=== PATIENT | female | born 1930 | race Caucasian/White ===

== ENCOUNTER 2017-02-20 17:35 | Inpatient (IN) | payer MEDICARE, BC ==
[~2017-02-20] VITALS: Ht 144.8 cm; Wt 55.3 kg
--- NOTE | 2017-02-20 17:35 | NUR ---
Admit Pt admitted to room 129 via EMS cart from [facility] at this time. Pt hallucinating, reaching into the air grabbing at food. EMS reported "cutting up biscuits and gravy for her in the ambulance." Pt Alert to place - she stated she was in the hospital, and said she was here because she fell, but did not understand that she broke her hip. Just stated "my right side hurts." Pt redirected easily. Family at patient bedside. Pt unable to rate pain, just that it "hurts." Will continue to monitor.
--- OUTSIDE RECORDS SUMMARY | 2017-02-20 17:50 | XMS REPORT | CCD ---
Author Author ADRIANA BROWNIGN Organization Unknown Address [address] [place] [phone] Phone 0 Care Team Providers Care Accountant Cost Name Role Phone Shyam DURAN Attending Physician 0 Vital Signs Unknown. Allergies Unknown. Procedures Unknown. History of Immunizations Unknown. Problems Unknown. Results Unknown. Medications Unknown. Medications Administered Unknown. Encounters Unknown. Social History Smoking Status Code Start Date End Date Unknown if ever smoked [id number] Patient Decision Aids Unknown. Instructions You were admitted to COUNTS [facility]CLUDE 234 BEDS AT THE [facility] on 02/27/2014. You were discharged from COUNTS INCLUDE 234 BEDS AT THE [facility] on 02/27/2014. Should you have any questions prior to discharge, please contact a member of your healthcare team. If you have left the hospital and have any questions, please contact your primary care physician. Chief Complaint and Reason For Visit Chief Complaint Date of Onset DEXA HIP SPINE Function Status Unknown. Plan of Care Unknown. Referral/Transition of Care Unknown.
--- OUTSIDE RECORDS SUMMARY | 2017-02-20 17:50 | XMS REPORT | Continuity of Care Document ---
Demographics Preferred Language Unknown Marital Status Unknown Jehovah'S Witness Affiliation Unknown Race Unknown Ethnic Group Unknown Author Author [facility] Organization [facility] Address Unknown Phone Unavailable Allergies Medications Problems Procedures Results Encounters ACCT No. Visit Date/Time Discharge Status Pt. Type Provider Facility Loc./Unit Complaint [id number] 02/28/2014 14:04:00 [facility] Unknown
[2017-02-20 18:00] VITALS: PULSE 137; RESP 22
[2017-02-20 18:01] VITALS: BP 190/98; PULSE 137; RESP 22; TEMP 98.6; O2SAT 94
[2017-02-20 18:13] VITALS: Ht 144.8 cm; Wt 55.3 kg
[2017-02-20] MEDS ORDERED: ONDANSETRON 4mg/2ml INJECTION IV PRN (18:45)
[2017-02-20] MEDS ORDERED: FURO-153 PO (19:17)
[2017-02-20] MEDS ORDERED: CYAN1TAB8 PO (19:17)
[2017-02-20] MEDS ORDERED: ACET-62 PO (19:17)
[2017-02-20] MEDS ORDERED: BENA10TA3 PO (19:17)
[2017-02-20] MEDS ORDERED: TROL35.4 TOP (19:17)
[2017-02-20] MEDS ORDERED: POTA10TA14 PO (19:17)
[2017-02-20] MEDS ORDERED: AMLO2.5T PO (19:17)
[2017-02-20] MEDS ORDERED: [UNRECOGNIZED DRUG - CODE] TOP (19:17)
[2017-02-20] MEDS ORDERED: DIPH28.33 TOP (19:17)
[2017-02-20] MEDS ORDERED: CARB-47 PO (19:17)
[2017-02-20] MEDS ORDERED: AMAN100T PO (19:17)
[2017-02-20] MEDS ORDERED: LIDO11JE TOP (19:17)
[2017-02-20] MEDS: HYDROMORPHONE 2mg/ml INJECTION IV PRN ×2 (19:24→22:30)
[2017-02-20 20:00] VITALS: PULSE 98; RESP 22
--- NOTE | 2017-02-20 20:29 | HPPDOC ---
HPI - Adult Date DATE: 02/20/17 TIME: 20:09 General Chief Complaint: quotation I broke my hip" History of Present Illness This pleasant 86-year-old female, Mrs. Mcnally [facility] [place] [facility] in [place], [place] and broke her right hip around 10 or 11 AM this morning. She was taken to the [facility] and there received x-rays and lab work and does some pain medicine. The [facility] called me late this afternoon around 4 5:00 and requested that we accept her for transfer because of the broken hip. I agreed to do so. Mrs. Ha got here somewhat after 6:00 I was still finishing some other patients and got down to her room to do the history and physical and the orders as quickly as I could. Past Medical History Past Medical History Past medical history is quite brief I interviewed both the patient and her 2 nieces who were present. Denies any history of heart problems or lung problems. She denies any history of urinary tract problems and denies any history of diabetes. She does admit to history of hypertension which is seems to be well controlled denies any history of brain trauma or any trauma to her body from accidental causes whatsoever. Surgical History Patient's Surgical History: Surgical history is very short she says she has had an appendectomy when she was in high school and is absolutely the only surgery she has ever had. Current Medications Home Meds Reported Medications Cyanocobalamin/FA/Pyridoxine (Homocysteine Formula Tablet) 1 Each Tablet, 1 TAB PO DAILY 02/20/17 Lidocaine Gel (Glydo 2%) 11 Ml Jel.pf.shanon, 1 APPLIC TOP TID Y for PAIN Apply to back PRN, offer TID 02/20/17 Trolamine Salicylate/Aloe Vera (Aspercreme 10% Cream) 35.4 Gm Cream..g., 1 APPLIC TOP PRN 02/20/17 Hydrocortisone Acetate/Aloe V (Hydrocortisone-Aloe 0.5% Cream) 28.4 Gm Cream..g. , 1 APPLIC TOP TID Y for ITCHING Apply to area of inner thigh PRN (May apply instead of or with Benadryl cream) 02/20/17 Diphenhydramine HCl/Zinc Acet (Benadryl Itch Stopping Crm) 28 Applic/28.3 G Cr, 1 APPLIC TOP QID Y for ITCHING, G apply to inner thighs PRN. May apply instead of or with Hydrocortisone cream 02/20/17 Acetaminophen (Acetaminophen) 500 Mg Tablet, 1 TAB PO Q4H, TAB Do not exceed 3,200 mg of acetaminophen in a 24 hours period. 02/20/17 Amantadine HCl (Amantadine) 100 Mg Tablet, 0.5 TAB PO BID, #60 TAB 1 Refill 02/20/17 Amlodipine Besylate (Amlodipine Besylate) 2.5 Mg Tablet, 2.5 MG PO DAILY, TAB 02/20/17 Potassium Chloride (Potassium Chloride) 10 Meq Tablet.er, 30 MEQ PO DAILY, TAB Take 1 tablet, by mouth, daily with breakfast 02/20/17 Carbidopa/Levodopa (Sinemet 25-100 mg Tablet) 1 Each Tablet, 1 TAB PO QID/E, TAB BEST ON AN EMPTY STOMACH. 02/20/17 Benazepril HCl (Benazepril HCl) 10 Mg Tablet, 1 TAB PO DAILY, TAB 02/20/17 Furosemide (Lasix) 40 Mg Tablet, 1 TAB PO DAILY, TAB 02/20/17 Allergies: Coded Allergies: NKDA (Verified Allergy, Unknown, 02/20/17) Family History Family History: Her family history is noncontributory. Social History Smoking Status: Never smoker Does patient use chewing tobac: No Second Hand Exposure: No Substance Use Type: does not use Alcohol Intake: none Marital Status: Sexuality: male partner Housing: [place] Number of Children: 0 Service: No Current Occupational Status: retired Occupational Hazard: No Advance Directives: Yes DPOA for Healthcare Only (Iris Chaney) Review of Systems Constitutional: REPORTS: see HPI, DENIES: chills, dizziness, early awakening, fever, insomnia, weight loss Eyes General: DENIES: burning, itching, pain Lids/Accessories: DENIES: erythema, swelling Vision: DENIES: acuity, change in color, double vision ENMT Ears: DENIES: pain Hearing: DENIES: tinnitus Balance: DENIES: vertigo Sinuses: NOT FOUND: rhinorrhea Nose: NOT FOUND: change in smell Mouth/Throat: DENIES: pain, scratchy throat, sore throat, sores ENMT Teeth: DENIES: chipped/cracked tooth, pain Jaw: DENIES: clicking, limited opening of mouth, popping Cardiovascular DENIES: chest pain, dyspnea on exertion, murmur, orthopnea, paroxysmal nocturnal dysp Rhythm/Rate: DENIES: irregular beat, palpitations, tachycardia Vascular: DENIES: Raynaud's, atrophy, intermittent claudication Pulmonary Respiratory: DENIES: cough, dyspnea, hyperventilation, pleuritic chest pain, sputum, tachypnea GI Upper Abdomen: DENIES: dysphagia, food intolerances, heartburn/indigestion, hematemesis, nausea General: DENIES: burning, dysuria, frequency, urgency Female: menopause Musculoskeletal General: DENIES: cramps, pain Lumbar: DENIES: spasm Integumentary Skin: DENIES: color change, itching, rash Hair: DENIES: alopecia, dandruff Nails: DENIES: paronychia, subungal hematoma Breasts: DENIES: discharge, lumps, symmetry, tenderness Neurological General: DENIES: ataxia, headache, numbness, paralysis/paresis, tremor, weakness Psychiatric Psychiatric: DENIES: anxiety, depression, emotional instability, irritability, nervousness, suicidal ideation/attempt Endocrine DENIES: heat/cold intolerance, polyphagia Hematologic/Lymphatic DENIES: anemia, bleeding gums, easy bruising, frequent nosebleeds Allergic/Immunological DENIES: frequent infections, sneezing All Other Systems All Other Systems: Reviewed (remainder of 10-point ROS Neg.) Physical Exam General General Nourishment: well nourished, well developed General Body Habitus: well groomed Vital Signs Vital Signs Date Time Temp Pulse Resp B/P Pulse Ox O2 Delivery O2 Flow Rate FiO2 02/20/17 19:24 20 02/20/17 18:01 98.6 137 190/98 94 Room Air Height (Feet): 4 Height (Inches): 9.00 Telemetry Rhythm: Sinus Rhythm Eyes Brief: FOUND: EOMI, PERRL ENMT Brief: FOUND: TM clear, TM good light reflex, ear canals clear Neck Brief: FOUND: adenopathy, thyromegaly Respiratory Brief: FOUND: clear all jackson, equal bilaterally, NOT FOUND: rales , wheezes Cardiovascular (brief) Cardiac Brief: FOUND: regular rate, regular rhythm, NOT FOUND: gallop, murmur, pedal edema Capillary Refill: <2 sec Abdomen (brief) Abdominal Brief: FOUND: BS normo active x4, soft, NOT FOUND: distended, hepatosplenomegaly (brief) Comments deferred Comments Female genitourinary exam is deferred at this time Lymphatic (brief) Lymphatic Brief: NOT FOUND: adenopathy, lymphedema Musculoskeletal (brief) Musculoskeletal Brief: NOT FOUND: spasm, tenderness Comments Right hip area is very tender to touch and the right leg is somewhat shortened and slightly rotated Musculoskeletal Back: NOT FOUND: spasm, tenderness Integumentary (brief) Integumentary Brief: FOUND: dry, pink, warm Neurologic (brief) Neurological Brief: FOUND: cranial 2-12 intact, NOT FOUND: motor Neurologic RN Documented GCS Eye Opening: Verbal: Motor: Total: 14 Psychiatric (brief) FOUND: alert, attentive, normal affect, oriented Concerns For Adverse Events Patient is somewhat stoic and doesn't seem to want to admit the severity of her injury or her level of pain but I think the presence of HER-2 nieces will help her to a properly asked for pain medicine and become better prepare mentally for her surgery tomorrow. Assessment & Plan Assessment 1). Intertrochanteric fracture of right femur 2.. Hypertension, well controlled. The current plan is to have patient nothing by mouth after midnight and in the meantime a letter have a full liquid diet. Also we plan to give her Dilaudid along with Zofran for emesis and pain control prior to surgery. Orthopedic surgery has been contacted and I know they will or enter their own orders as they see fit. Code Status Full Code Hospital Course Summary Disclaimer The hospital course summary below is not to be considered part of the above Progress Note. EVELYN HOOVER DO Feb 20, 2017 20:12
[2017-02-20 20:37] LABS: INR 0.98 (0.76-1.04); PROTHROMBIN TIME 10.7 SEC (9.31-12.49)
[2017-02-20 20:41] LABS: ALBUMIN 4.2 G/DL (3.5-5.0); ALBUMIN/GLOBULIN RATIO 1.1 RATIO (1.1-2.2); ALKALINE PHOSPHATASE 98 U/L (38-126); ALT (SGPT) 36 U/L (9-52); ANION GAP 13 MEQ/L (5-15); AST (SGOT) 31 U/L (14-36); BUN/CREATININE RATIO 16 RATIO (6-26); CALCIUM 9.6 MG/DL (8.4-10.2); CHLORIDE 104 MEQ/L (98-107); CO2 - CARBON DIOXIDE 26 MEQ/L (22-30); CREATININE 1.3 MG/DL (0.7-1.2); GLOMERULAR FILTRATION RATE 39; GLUCOSE 125 MG/DL (65-110); SODIUM 143 MEQ/L (134-144)
--- NOTE | 2017-02-20 21:00 | NUR ---
Order/Code status: Pt nurseEleanor states that family requests Pt to be a DNR. Notified Dr. Morgan in person this shift and received verbal order to change Pt code status to DNR. Order noted and implemented. Notified staff nurseEleanor.
--- NOTE | 2017-02-20 21:24 | DI ---
Indication: ITS.REASON: Hip fx PROCEDURE: PELVIS W/1 VIEW RT HIP: Encounter: Initial Comparison: February 20, 2017 Findings: Displaced intertrochanteric right femoral fracture is again seen. There is now fully catheter in place with the tip projecting over the bladder. No new fracture or dislocation. Diffuse bony demineralization. Impression: Unchanged appearance of the intertrochanteric right femoral fracture. .
[2017-02-20 22:19] VITALS: BP 172/95; PULSE 98; RESP 22; TEMP 96.3; O2SAT 96
[2017-02-21] VITALS (30 sets, daily range): BP systolic 129–212; BP diastolic 58–98; PULSE 80–102; RESP 13–22; TEMP 96.4–98.8; O2SAT 92–100
[2017-02-21] MEDS: HYDROMORPHONE 2mg/ml INJECTION IV PRN ×5 (01:30→20:41)
--- NOTE | 2017-02-21 02:53 | NUR ---
Chart Check 24 hour chart check completed
--- NOTE | 2017-02-21 03:57 | NUR ---
STATUS PATIENT IS ONLY ORIENTATED TO PERSON. PATIENT UNABLE TO TELL RN THAT HER PAIN LEVEL . PRN DILAUDID IV WAS GIVEN BY USING H[place] FACES PAIN SCALE. NPO. PATIENT KEPT TO ASKING TO GIVE HER WATER DURING NIGHT. NEEDED TO REPEAT TO TELL HER THE REASONS THAT WHY SHE CAN'T HAVE WATER. ON ROOM AIR .DENIES CHEST PAIN,SOA,OR N/V. PATIENT ATTEMPT TO PULL HAMILTON AND IV LOCK OUT CONSISTENTLY. HAMILTON PATENT/DRAINING.COBAN APPLIED AT RAC IV SITE. SCD WAS USED BOTH LOW EXTREMITIES. CONTINUE TO MONITOR.
[2017-02-21 05:14] LABS: BASOPHILS % (AUTO) 0.1 % (0-2); EOSINOPHILS % (AUTO) 0.1 % (0-4); HGB - HEMOGLOBIN 13.4 GM/DL (12-16); IMMATURE GRANULOCYTE # (AUTO) 0.02 T/MM3 (0.00-0.03); IMMATURE GRANULOCYTE % (AUTO) 0.2 % (0.0-0.5); LYMPHOCYTES % (AUTO) 9.2 % (23-45); MEAN CORPUSCULAR HGB 30.2 UUG (26-34); MEAN CORPUSCULAR HGB CONC(MCHC 32.7 GM/DL (31-37); MEAN CORPUSCULAR VOLUME 92.6 UM3 (80-100); MEAN PLATELET VOLUME 11.4 UM3 (9.4-12.4); MONOCYTES # (AUTO) 1.2 T/MM3 (0-0.8); MONOCYTES % (AUTO) 11.2 % (0-9.0); NEUTROPHILS #(AUTO)-ABSOLUTE 8.8 T/MM3 (1.8-7.7); NEUTROPHILS % (AUTO) 79.2 % (33-66); RED BLOOD COUNT 4.43 M/MM3 (4.00-5.20); WBC - WHITE BLOOD COUNT 11.1 T/MM3 (4.5-11.0)
[2017-02-21 05:22] LABS: ANION GAP 9 MEQ/L (5-15); BUN/CREATININE RATIO 17 RATIO (6-26); CALCIUM 9.3 MG/DL (8.4-10.2); CHLORIDE 104 MEQ/L (98-107); CO2 - CARBON DIOXIDE 30 MEQ/L (22-30); CREATININE 1.2 MG/DL (0.7-1.2); GLOMERULAR FILTRATION RATE 42; GLUCOSE 124 MG/DL (65-110); POTASSIUM 3.8 MEQ/L (3.6-5); SODIUM 143 MEQ/L (134-144)
--- NOTE | 2017-02-21 06:32 | CONSPD ---
Consultation Info Date DATE: 02/21/17 TIME: 06:26 Attending Physician Ruma Lopez MD Reason for Consultation: Right hip fx. Impression/Recommendation Impression/Recommendation: (1) Hypertension (2) Closed intertrochanteric fracture of right hip Ortho HPI HPI Elements Location: FOUND hip (right) Injury: Yes (Fell at the [place] in [place].) Pain: FOUND sharp Onset: Sudden (Fell 02/20/17.) Radiating: No Severity: FOUND moderate, FOUND severe Duration: FOUND other (Fell late morning 02/20/17) Previous Surgery: No Previous Injury: No Aggrevated by: FOUND all activity Treatments Tried: FOUND pain medications, FOUND rest X-ray Findings: FOUND intertrochanteric fx (of the right hip.) Recommendation: FOUND other (Internal fixation with cephalomedullary device.) Review of Systems Constitutional: REPORTS: see HPI, DENIES: chills, dizziness, early awakening, fever, insomnia, weight loss Cardiovascular DENIES: chest pain, dyspnea on exertion, murmur, orthopnea, paroxysmal nocturnal dysp Rhythm/Rate: DENIES: irregular beat, palpitations, tachycardia Vascular: DENIES: Raynaud's, atrophy, intermittent claudication Pulmonary Respiratory: DENIES: cough, dyspnea, hyperventilation, pleuritic chest pain, sputum, tachypnea GI Upper Abdomen: DENIES: dysphagia, food intolerances, heartburn/indigestion, hematemesis, nausea General: DENIES: burning, dysuria, frequency, urgency Musculoskeletal General: DENIES: cramps, pain Lumbar: DENIES: spasm Integumentary Skin: DENIES: color change, itching, rash Hair: DENIES: alopecia, dandruff Nails: DENIES: paronychia, subungal hematoma Breasts: DENIES: discharge, lumps, symmetry, tenderness Neurological General: DENIES: ataxia, headache, numbness, paralysis/paresis, tremor, weakness Psychiatric Psychiatric: DENIES: anxiety, depression, emotional instability, irritability, nervousness, suicidal ideation/attempt Endocrine DENIES: heat/cold intolerance, polyphagia Hematologic/Lymphatic DENIES: anemia, bleeding gums, easy bruising, frequent nosebleeds Allergic/Immunological DENIES: frequent infections, sneezing All Other Systems Reviewed (remainder of 10-point ROS Neg.) Past Medical History Adult Past Medical History Patient History: (1) Hypertension (2) Parkinson disease Surgical History Patient's Surgical History: Appendectomy Current Medications Acetaminophen (Acetaminophen) 500 Mg Tablet, 1 TAB PO Q4H, (Reported) Do not exceed 3,200 mg of acetaminophen in a 24 hours period. Last Taken: Unknown Dose on Unknown Date & Time Amantadine HCl (Amantadine) 100 Mg Tablet, 0.5 TAB PO BID, (Reported) Last Taken: Unknown Dose on 02/20/17 08 Amlodipine Besylate (Amlodipine Besylate) 2.5 Mg Tablet, 2.5 MG PO DAILY, (Reported) Last Taken: Unknown Dose on 02/20/17 0800 Benazepril HCl (Benazepril HCl) 10 Mg Tablet, 1 TAB PO DAILY, (Reported) Last Taken: Unknown Dose on 02/20/17 0800 Carbidopa/Levodopa (Sinemet 25-100 mg Tablet) 1 Each Tablet, 1 TAB PO QID/E, (Reported) BEST ON AN EMPTY STOMACH. Last Taken: Unknown Dose on 02/20/17 1000 Cyanocobalamin/FA/Pyridoxine ( Homocysteine Formula Tablet) 1 Each Tablet, 1 TAB PO DAILY, (Reported) Last Taken: Unknown Dose on Unknown Date & Time Diphenhydramine HCl/Zinc Acet (Benadryl Itch Stopping Crm) 28 Applic/28.3 G Cr, 1 APPLIC TOP QID PRN for ITCHING, (Reported) apply to inner thighs PRN. May apply instead of or with Hydrocortisone cream Last Taken: Unknown Dose on Unknown Date & Time Furosemide (Lasix) 40 Mg Tablet, 1 TAB PO DAILY, (Reported) Last Taken: Unknown Dose on 02/20/17 0800 Hydrocortisone Acetate/Aloe V ( Hydrocortisone-Aloe 0.5% Cream) 28.4 Gm Cream..g., 1 APPLIC TOP TID PRN for ITCHING, (Reported) Apply to area of inner thigh PRN (May apply instead of or with Benadryl cream ) Last Taken: Unknown Dose on Unknown Date & Time Lidocaine Gel (Glydo 2%) 11 Ml Jel.pf.shanon, 1 APPLIC TOP TID PRN for PAIN, (Reported) Apply to back PRN, offer TID Last Taken: Unknown Dose on Unknown Date & Time Potassium Chloride ( Potassium Chloride) 10 Meq Tablet.er, 30 MEQ PO DAILY, (Reported) Take 1 tablet, by mouth, daily with breakfast Last Taken: Unknown Dose on 02/20/17 0800 Trolamine Salicylate/Aloe Vera ( Aspercreme 10% Cream) 35.4 Gm Cream..g., 1 APPLIC TOP PRN, (Reported) Last Taken: Unknown Dose on Unknown Date & Time Allergies Allergies: Coded Allergies: NKDA (Verified Allergy, Unknown, 02/20/17) Family History Family History: Her family history is noncontributory. Vaccines No Social History Smoking Status: Never smoker Does patient use chewing tobac: No Second Hand Exposure: No Substance Use Type: does not use Alcohol Intake: none Marital Status: Sexuality: male partner Housing: [facility] Number of Children: 0 Service: No Current Occupational Status: retired Occupational Hazard: No Advance Directives: Yes DPOA for Healthcare Only (Iris Chaney) Physical Exam General General: well developed, no acute distress Respiratory FOUND non-labored Cardiovascular FOUND pedal pulses intact Capillary Refill: <2 sec Musculoskeletal Musculoskeletal : Side: Right Hip: FOUND painful PROM, FOUND tender over trochanter, FOUND unequal leg length Musculoskeletal Brief: FOUND: deformity, loss of motion Integumentary FOUND dry, FOUND pink, FOUND warm Neurologic FOUND intact to light touch, FOUND no deficits Psychiatric FOUND alert, FOUND normal affect Laboratory Laboratory Tests Test 02/20/17 20:08 02/21/17 04:06 Prothromb Time International Ratio 0.98 Turbidity < 20 < 20 Sodium Level 143MEQ/L 143MEQ/L Potassium Level 4.0MEQ/L 3.8MEQ/L Chloride Level 104MEQ/L 104MEQ/L Carbon Dioxide Level 26MEQ/L 30MEQ/L Anion Gap 13MEQ/L 9MEQ/L Blood Urea Nitrogen 21.0MG/DL 20.0MG/DL Creatinine 1.3MG/DL 1.2MG/DL Glomerular Filtration Rate Calc 39 42 BUN/Creatinine Ratio 16RATIO 17RATIO Glucose Level 125MG/DL 124MG/DL Calculated Osmolality 279MOSM/KG 279MOSM/KG Calcium Level 9.6MG/DL 9.3MG/DL Total Bilirubin 1.10MG/DL Icterus Index < 2 < 2 Aspartate Amino Transf (AST/SGOT) 31U/L Alanine Aminotransferase (ALT/SGPT) 36U/L Alkaline Phosphatase 98U/L Total Protein 8.0G/DL Albumin 4.2G/DL Globulin 3.8G/DL Albumin/Globulin Ratio 1.1RATIO Chemistry Specimen Hemolysis < 15 < 15 White Blood Count 11.1T/MM3 Red Blood Count 4.43M/MM3 Hemoglobin 13.4GM/DL Hematocrit 41.0% Mean Corpuscular Volume 92.6UM3 Mean Corpuscular Hemoglobin 30.2UUG Mean Corpuscular Hemoglobin Concent 32.7GM/DL RDW Standard Deviation 50.2FL Platelet Count 195T/MM3 Mean Platelet Volume 11.4UM3 Immature Granulocyte % (Auto) 0.2% Neutrophils (%) (Auto) 79.2% Lymphocytes (%) (Auto) 9.2% Monocytes (%) (Auto) 11.2% Eosinophils (%) (Auto) 0.1% Basophils (%) (Auto) 0.1% Absolute Immature Granulocyte (auto 0.02T/MM3 Absolute Neutrophils (auto) 8.8T/MM3 Absolute Lymphocytes (auto) 1.0T/MM3 Absolute Monocytes (auto) 1.2T/MM3 Absolute Eosinophils (auto) 0.0T/MM3 Absolute Basophils (auto) 0.0T/MM3 Radiology Radiology Closed, displaced intertrochanteric fx of the right hip. JÚNIOR AMBROSE Feb 21, 2017 06:30
--- NOTE | 2017-02-21 08:51 | NUR ---
CM CM IN TO VISIT WITH PT. SHE IS UNABLE TO PARTICIPATE IN DC PLANNING. HER DPOA, BAR, AND ANOTHER FEMALE FAMILY MEMBER ARE PRESENT. BAR REPORTS THAT PT RESIDES IN HEALTHCARE AT [facility]. SHE PLANS TO PT TO RETURN THERE FOR SNF. SHE IS GIVEN [facility] LETTER AND CM CONTACT INFORMATION. LACE SCORE IS 7. NO FURTHER INTERVENTION REQUIRED. Addendum: 02/21/17 at 0852 by EFREN JOHNSON RN Amended: Links added.
[2017-02-21] MEDS ORDERED: ACETAMINOPHEN 325 MG TABLET PO PRN (09:30)
[2017-02-21] MEDS ORDERED: ALBUTEROL INH.SOLN. 2.5 MG/0.5 ML (0.5%) Neb. AEROSOL PRN (09:30)
[2017-02-21] MEDS ORDERED: MILK OF MAGNESIA 30 ML SUSP PO PRN (09:30)
[2017-02-21] MEDS ORDERED: HYDROCORTISONE 1% CREAM 28 GM TOP PRN (09:30)
[2017-02-21] MEDS ORDERED: ACETAMINOPHEN 650 MG SUPPOSITORY RECTALLY PRN (09:30)
[2017-02-21] MEDS ORDERED: BISACODYL 10 MG SUPPOSITORY RECTALLY PRN (09:30)
--- NOTE | 2017-02-21 09:42 | PNPDOC ---
DMITRIY CRISTOBAL JOB TRAINING SUPERVISOR 02/21/17 0924: Subjective Date DATE: 02/21/17 TIME: 09:20 Subjective Eugenie was resting in bed, in no acute distress. She's been A&O to self. She denies any pain. She is NPO for surgery later this afternoon. Two nieces, including her DPOA Rosie, were at bedside. We discussed common medical complications of the injury and surgery, including delirium, constipation, and anemia. I reviewed steps they can take to help minimize delirium. They report that she's already been restless, and pulling at wires and cords, and agree to medication if needed to protect her safety. Objective Vital Signs Vital signs Vital Signs Date Time Temp Pulse Resp B/P Pulse Ox O2 Delivery O2 Flow Rate FiO2 02/21/17 08:54 18 02/21/17 07:24 97.0 89 156/78 92 Room Air Telemetry Rhythm: Sinus Rhythm Height (Feet): 4 Height (Inches): 9.00 Weight (Kilograms): 52.500 General General Appearance: Alert, Orientated x 1, Well Nourished, Well Developed, No Acute Distress Eyes (Brief) Eyes: FOUND: PERRL, NOT FOUND: scleral icterus ENMT (Brief) ENMT: NOT FOUND: mucosa moist (dry MM) Respiratory (Brief) Respiratory: FOUND: clear all jackson, equal bilaterally Cardiovascular (Brief) Cardiac: FOUND: regular rate, regular rhythm Abdomen (Brief) Abdominal: FOUND: BS normo active x4, soft, NOT FOUND: distended, tender (Brief) Comments Mir to DD Extremities (Brief) Extremity : Side: Bilateral Extremity: leg Extremity Finding: NOT FOUND: edema Musculoskeletal (Brief) Musculoskeletal: FOUND: deformity (right leg is shortened), NOT FOUND: tenderness (calves soft) Integumentary (Brief) Integumentary: FOUND: dry, warm Comments bruising to right hand right hip has been initialed by surgeon Psychiatric (Brief) Psychiatric: FOUND: alert, attentive, normal affect, oriented (x1) Laboratory Laboratory Laboratory Tests 02/20/17 20:08 02/21/17 04:06 Laboratory Tests 02/21/17 04:06 Assessment & Plan Problems: (1) Closed intertrochanteric fracture of right hip Status: Acute (2) Leukocytosis Status: Acute (3) Parkinson disease Status: Chronic Assessment & Plan: Uses a walker at baseline (4) Hypertension Status: Chronic Assessment 86 y/o woman with Right hip IT fx; Parkinson's with cognitive impairment; high risk for delirium Plan/Intensity of Service Right hip IT fx - sx this afternoon per ortho. No EKG noted in chart, will obtain one now. Otherwise medically cleared. Cr and GFR both improved slightly. Hgb stable. Will need to consult PT/OT postop. DVT ppx per ortho. Leukocytosis - suspect stress response. Reassess in am. HTN - resume amlodipine tomorrow am. Continue to hold Lasix, K, and benazepril until we can ensure postop BP, renal, and fluid status stabilization. Parkinson's with cognitive impairment; high risk for delirium - monitor closely. Haldol not appropriate given underlying Parkinson's. Start IVF - NS at 75 mL/hr - d/t NPO status. Advance diet as able, but will also obtain speech eval for dysphagia. Repeat chemistries in am because of NPO status and IVF use. High risk medication in use - IV Dilaudid. DVT Prophylaxis: SCD'S Code Status Do Not Resuscitate Hospital Course Summary Disclaimer The hospital course summary below is not to be considered part of the above Progress Note. Hospital Course Summary ADMIT 02/20/17 1). Intertrochanteric fracture of right femur 2. Hypertension, well controlled. The current plan is to have patient nothing by mouth after midnight and in the meantime a letter have a full liquid diet. Also we plan to give her Dilaudid along with Zofran for emesis and pain control prior to surgery. Orthopedic surgery has been contacted. OP DAY 02/21/17 Cr and GFR both improved slightly. Hgb stable. Leukocytosis - suspect stress response. Reassess in am. HTN - resume amlodipine tomorrow am. Continue to hold Lasix, K, and benazepril until we can ensure postop BP, renal, and fluid status stabilization. Parkinson's with cognitive impairment; high risk for delirium - monitor closely. Start IVF - NS at 75 mL/hr - d/t NPO status. Advance diet as able, but will also obtain speech eval for dysphagia. EVELYN MORGAN DO 02/21/172022: Assessment & Plan Plan/Intensity of Service 02/21/2017 Morgan note: I saw Mrs. Eugenie Ha after her surgery. It was approximately 8:15 when I saw her and she still a little groggy from surgery. She did not complain of shortness of breath nor did she complain of any chest pain. When asked about her hip pain she said she didn't did not have any. Her abdomen she says it does not hurt her and he denied any current thirst or hunger. She is not well oriented but I'm sure that is due to the medications used during and after her surgery. Heart demonstrates a regular rate and rhythm without murmur; lungs are clear to auscultation bilaterally; abdomen is soft nontender ID or good bowel sounds; lower extremities show no cyanosis and no edema; patient is not well oriented but that is to be expected; her diagnoses remain, 1. Intertrochanteric fracture of the right femur, surgically repaired today; 2. Leukocytosis, which we think is a stress reaction, 3 parkinsonism which is chronic, 4. Hypertension which is a little bit of a problem right now that we have given her as I ordered clonidine 0.1 mg and her pressure has come down systolically to about 180 or 185. Today is her operative day we plan to resume more medications tomorrow including her blood pressure medicine. The nurses tell me she'll call the night stiff she needs to for the supplementation of the clonidine should this lose pressure go higher. I have read the wrist note is repaired by Ms. Cristobal and no fully agree with her findings and her assessments and plan. DMITRIY CRISTOBAL APRN Feb 21, 2017 09:24 EVELYN MORGAN DO Feb 21, 2017 20:23
[2017-02-21] MEDS: NORMAL SALINE 1,000 ML IV SCH (10:01)
--- NOTE | 2017-02-21 10:35 | NUR ---
SPEECH THERAPY: ORDER RECEIVED AND CHART REVIEWED. THIS CUSHION INSTALLER TALKED WITH PT'S RN. PT IS CURRENTLY NPO AWAITING SURGERY SCHEDULED FOR LATER THIS AFTERNOON (02/21). ST WILL CONTINUE TO FOLLOW AND WILL COMPLETE EVAL WHEN APPROPRIATE.
[2017-02-21] MEDS: CARBIDOPA/LEVODOPA 25 MG/100 MG TABLET PO SCH ×3 (10:52→20:36)
[2017-02-21] MEDS: AMANTADINE PO SCH ×2 (12:45→20:36)
--- NOTE | 2017-02-21 12:48 | ANESPREOP ---
Anesthesia Record Date and Time DATE: 02/21/17 TIME: 12:46 Proposed Surgical Procedure ORIF right hip fx NPO since: mn Allergies: Coded Allergies: NKDA (Verified Allergy, Unknown, 02/20/17) Ht/Wt/BMI Height: 4 ' 9.00 " Weight: 51.900 kg BMI: 25.1 kg/m2 Vital Signs Date Time Temp Pulse Resp B/P Pulse Ox O2 Delivery O2 Flow Rate FiO2 02/21/17 11:23 97.3 93 16 182/83 98 Room Air Medications Inpatient Medications Current Medications Medications (Trade) Dose Ordered Sig/Renee Start Time Stop Time Status Last Admin Dose Admin Ondansetron HCl (Zofran) GIVE 4 TO 8 MG iv EVER... Q4H PRN 02/20/17 18:45 02/22/17 10:00 Hydromorphone HCl (Dilaudid) 0.5 mg Q1-2H PRN 02/20/17 18:45 02/22/17 11:00 02/21/17 08:54 0.5 MG Multi-Ingredient Antiseptic 1 each 1 each PREOP PRN 02/21/17 13:00 Sodium Chloride (Normal Saline IV) 1,000 ml @ 75 mls/hr [id number] 02/21/17 09:30 02/21/17 10:01 75 MLS/HR Amlodipine Besylate (Norvasc) 2.5 mg DAILY 02/22/17 09:00 Carbidopa/Levodopa (Sinemet 25/100) 1 tab QID/E 02/21/17 11:00 Amantadine HCl (Symmetrel) 50 mg BID 02/21/17 12:45 Folic Acid/ Cyanocobalamin/ pyridoxin (Folic Acid+B6+B12) 1 tab DAILY 02/22/17 09:00 Non-Formulary Medication 1 applic TID PRN 02/21/17 09:30 UNV Senna/Docusate Sodium (Senna Plus) 1 tab BID 02/21/17 21:00 Magnesium Hydroxide (Mom) 30 ml DAILY PRN 02/21/17 09:30 Acetaminophen (Tylenol Regular Strength) 1-2 tabs Q4HR PRN 02/21/17 09:30 Acetaminophen (Tylenol Suppository) 650 mg Q6H PRN 02/21/17 09:30 Albuterol (Proventil) 2.5 mg Q2HR PRN 02/21/17 09:30 Bisacodyl (Dulcolax) 10 mg BID PRN 02/21/17 09:30 Acetaminophen (Acetaminophen) 500 Mg Tablet, 1 TAB PO Q4H, (Reported) Do not exceed 3,200 mg of acetaminophen in a 24 hours period. Last Taken: on Unknown Date & Time Amantadine HCl (Amantadine) 100 Mg Tablet, 0.5 TAB PO BID, (Reported) Last Taken: on 02/20/17 08 Amlodipine Besylate (Amlodipine Besylate) 2.5 Mg Tablet, 2.5 MG PO DAILY, (Reported) Last Taken: on 02/20/17 0800 Benazepril HCl (Benazepril HCl) 10 Mg Tablet, 1 TAB PO DAILY, (Reported) Last Taken: on 02/20/17 0800 Carbidopa/Levodopa (Sinemet 25-100 mg Tablet) 1 Each Tablet, 1 TAB PO QID/E, (Reported) BEST ON AN EMPTY STOMACH. Last Taken: on 02/20/17 1000 Cyanocobalamin/FA/Pyridoxine (Homocysteine Formula Tablet) 1 Each Tablet, 1 TAB PO DAILY, (Reported) Last Taken: on Unknown Date & Time Diphenhydramine HCl/Zinc Acet (Benadryl Itch Stopping Crm) 28 Applic/28.3 G Cr, 1 APPLIC TOP QID PRN for ITCHING, ( Reported) apply to inner thighs PRN. May apply instead of or with Hydrocortisone cream Last Taken: on Unknown Date & Time Furosemide (Lasix) 40 Mg Tablet, 1 TAB PO DAILY, (Reported) Last Taken: on 02/20/17 0800 Hydrocortisone Acetate/Aloe V (Hydrocortisone- Aloe 0.5% Cream) 28.4 Gm Cream..g., 1 APPLIC TOP TID PRN for ITCHING, (Reported) Apply to area of inner thigh PRN (May apply instead of or with Benadryl cream ) Last Taken: on Unknown Date & Time Lidocaine Gel (Glydo 2%) 11 Ml Jel.pf.shanon, 1 APPLIC TOP TID PRN for PAIN, (Reported) Apply to back PRN, offer TID Last Taken: on Unknown Date & Time Potassium Chloride (Potassium Chloride) 10 Meq Tablet.er, 30 MEQ PO DAILY, (Reported) Take 1 tablet, by mouth, daily with breakfast Last Taken: on 02/20/17 0800 Trolamine Salicylate/Aloe Vera (Aspercreme 10% Cream) 35.4 Gm Cream..g., 1 APPLIC TOP PRN, (Reported) Last Taken: on Unknown Date & Time Currently on Beta Jace: No Medical/Surgical History Anesthesia PMH: Reports: *Hypertension (on meds) Smoking Status: Never smoker Use Chewing Tobacco?: No Second Hand Exposure: No Substance Use Type: does not use Alcohol Intake: none Past Surgical History Orthopedic Surgeries: No Abdominal Surgeries: Yes - Appendix Genitourinary Surgeries: Yes Cardiac Surgeries: No Endocrine Surgeries: No Reproductive Surgeries: No Neurological Surgeries: No Ear Surgeries: No Nose Surgeries: No Throat Surgeries: Yes Other Surgeries: Anesthesia Adverse Reactions: FOUND none Family Hx of Anesthesia Advers: none Hx of Motion Sickness: No Pertinent Findings Laboratory Tests 02/21/17 04:06 Test 02/20/17 20:08 Prothromb Time International Ratio 0.98 (0.76-1.04) Physical Exam Respiratory: Bilat breath sounds equal, Lungs clear Cardiovascular: FOUND Regular rate, rhythm Airway Assessment Mallampati Score: I TMD: 3 Fingerbreadths Neck Extension: Fair Overall Assessment: No Airway Concerns ASA: 2, E Plan Anesthesia Plan: LMA, GETA Discussion Discussed risks/options/alternatives of anesthesia and questions answered. Patient consents. Nursing pain assessment noted. Present: Family Member Attestation Statement Prior to the delivery of any anesthetic medication, I examined the patient, developed the plan, obtained the patient's consent and discussed the risk and benefits of the procedure with the patient/guardian. MULUGETA WARREN CRNA Feb 21, 2017 12:48
[2017-02-21] MEDS ORDERED: CEFAZOLIN 2 GM VIAL IV ONE (13:00)
[2017-02-21] MEDS ORDERED: NOZIN NASAL SWAB NS PRN (13:00)
--- NOTE | 2017-02-21 14:33 | NUR ---
To OR Pt transferred at this time via bed to OR at this time. VS stable on RA. Family present at time of transfer.
[2017-02-21] MEDS ORDERED: FENTANYL 100mcg/2ml INJECTION ONE (15:40)
[2017-02-21] MEDS ORDERED: KETAMINE 500mg/10ml INJECTION ONE (15:41)
[2017-02-21] MEDS ORDERED: PROPOFOL 500mg 50 ML IV ONE (15:41)
[2017-02-21] MEDS ORDERED: PROPOFOL 200mg 20 ML IV ONE (15:42)
[2017-02-21] MEDS ORDERED: ALBUTEROL INH.SOLN. 2.5mg/3ml (0.083%) Neb. AEROSOL PRN (15:45)
[2017-02-21] MEDS ORDERED: BUPIVACAINE 0.25%/EPI 1:200,000 30ml SDV ONE (15:45)
[2017-02-21] MEDS ORDERED: LIDOCAINE 1% (10mg/ml) 30ml SDV ONE (15:45)
[2017-02-21] MEDS ORDERED: SALINE FLUSH 10ml SYRINGE ONE (16:22)
[2017-02-21] MEDS ORDERED: PHENYLEPHRINE 10mg/ml INJECTION ONE (16:22)
--- NOTE | 2017-02-21 16:50 | PDOPERATE ---
CM Nail Short Procedure Fixation of Intertrochanteric femoral fracture. Date of Operation 02/21/17 Preoperative Diagnosis Right three-part intertrochanteric hip fracture. Postoperative Diagnosis Right three-part intertrochanteric hip fracture. Operation Cephalomedullary fixation of right intertrochanteric hip fracture. Surgeon Fouzia Lopez MD [employer] Lieutenant DUNG Fuller Complications None. Anesthesia TIVA Estimated Blood Loss See Anesthesia Record. Fluids Please See Anesthesia Record. Description of Procedure The patient and the operative extremity were identified and marked in the preoperative holding area. The patient was brought back to the operating suite and placed supine on the fracture table. The patient was placed under general anesthesia. Both legs were placed in well-padded traction boots. The right leg was placed into traction, internal rotation and adduction. The left leg was just placed into extension without traction. Fluoroscopic images confirmed a good reduction. The right lower extremity was then prepped and draped in my normal sterile fashion. Timeout was performed. A 3 cm incision was made proximal to the greater trochanter. The proximal femur was opened over a guidepin and a long guide adrianna was placed down the femur. I reamed to a 12.5 and placed an 11 mm short Gamma nail over the guidepin. A lag screw was placed into a center-center location in the femoral head using the aiming arm over guidepin. Traction was let down and the compression device was used to provide compression at the fracture site. The screw was then locked into place. A locking screw was placed through the nail distally using the aiming arm. All wounds were thoroughly irrigated and then closed with 2-0 Vicryl , Dermabond, and then dressed with tegaderms. The drapes were removed. The patient was allowed to awaken from general anesthesia and taken out of the traction and taken back to the recovery room under care of Anesthesia. The patient tolerated the procedure. There were no complications. CONOR LOPEZ MD Feb 21, 2017 16:50
[2017-02-21] MEDS ORDERED: HYDROCODONE/APAP 5 mg/325 mg TABLET PO PRN (17:00)
--- NOTE | 2017-02-21 17:02 | PDPROCED ---
Immediate Operative Note DATE: 02/21/17 TIME: 17:01 Preop Diagnosis: Right hip intertrochanteric hip fracture Postop Diagnosis: Right hip intertrochanteric hip fracture Surgical Procedures: R ORIF with Cephalomedullary Device Surgeon: John Supervisor Product Inspection: DUNG Chen Anesthesia: TIVA, General Complications: none Estimated Blood Loss see anesthesia note SOHAN WEINBERG Feb 21, 2017 17:02
--- NOTE | 2017-02-21 17:32 | NUR ---
Anesthesia Hardy Allred CRNA notified of pts continued hypertension. No new orders received at this time.
--- NOTE | 2017-02-21 17:34 | ANESPO ---
Post-Op Note Date 02/21/17 Time: 17:34 Status Pt Participated in Evaluation: Pt participated in person Vital Signs Date Time Temp Pulse Resp B/P Pulse Ox O2 Delivery O2 Flow Rate FiO2 02/21/17 17:30 81 16 181/86 97 Room Air 02/21/17 17:20 97.1 02/21/17 17:15 2.00 Respiratory Function: Airway patent, Regular respirations Cardiovascular Function: Regular pulse Telemetry Pattern: SR Pain Level Intensity: 0 Hydration: IV infusing Complications during Recovery None apparent Follow-Up Instructions Instructions Per Surgeon NHAN MEYER CRNA Feb 21, 2017 17:34
--- NOTE | 2017-02-21 17:39 | NUR ---
Back to room Pt transferred back to room at this time by Kathya Abreu RN via bed. Pt on RA. Pt denies nausea and pain at this time. Side rails up X2, call light w/in reach, bed alarm on.
[2017-02-21] MEDS ORDERED: CLONIDINE 0.1 MG TABLET PO ONE (18:00)
[2017-02-21] MEDS: SENNA + DOCUSATE TAB PO SCH (20:36)
[2017-02-22] VITALS (7 sets, daily range): BP systolic 128–187; BP diastolic 63–81; PULSE 77–95; RESP 14–18; TEMP 97.4–99.1; O2SAT 94–98
[2017-02-22] MEDS: CEFAZOLIN 1 G in NORMAL SALINE 100 ML IV SCH ×2 (00:55→10:02)
--- NOTE | 2017-02-22 01:22 | NUR ---
Chart Check 24 hour chart check completed
[2017-02-22] MEDS: NORMAL SALINE 1,000 ML IV SCH (03:32)
--- NOTE | 2017-02-22 05:05 | NUR ---
SHIFT SUMMARY PATIENT IS ALERT AND ORIENTED TO SELF ONLY. PATIENT HAS BEEN HYPERTENSIVE THIS SHIFT, OTHERWISE VITALS ARE STABLE ON ROOM AIR. PATIENT WAS UNCOOPERATIVE AND COMBATIVE EARLY IN SHIFT. AFTER PATIENT WAS GIVEN PRN PAIN MEDICATION PATIENT REPORTED INCREASED COMFORT AND RESTED THROUGH THE NIGHT. WILL CONTINUE TO MONITOR.
[2017-02-22 05:48] LABS: ANION GAP 10 MEQ/L (5-15); BUN/CREATININE RATIO 17 RATIO (6-26); CALCIUM 8.4 MG/DL (8.4-10.2); CHLORIDE 111 MEQ/L (98-107); CO2 - CARBON DIOXIDE 24 MEQ/L (22-30); GLOMERULAR FILTRATION RATE 52; GLUCOSE 106 MG/DL (65-110); SODIUM 145 MEQ/L (134-144)
[2017-02-22 05:55] LABS: BASOPHILS % (AUTO) 0.1 % (0-2); EOSINOPHILS % (AUTO) 0.3 % (0-4); HCT - HEMATOCRIT 37.1 % (36-46); HGB - HEMOGLOBIN 11.6 GM/DL (12-16); IMMATURE GRANULOCYTE # (AUTO) 0.02 T/MM3 (0.00-0.03); IMMATURE GRANULOCYTE % (AUTO) 0.2 % (0.0-0.5); LYMPHOCYTES # (AUTO) 0.8 T/MM3 (1-4.8); LYMPHOCYTES % (AUTO) 7.3 % (23-45); MEAN CORPUSCULAR HGB 29.7 UUG (26-34); MEAN CORPUSCULAR HGB CONC(MCHC 31.3 GM/DL (31-37); MEAN CORPUSCULAR VOLUME 94.9 UM3 (80-100); MEAN PLATELET VOLUME 11.2 UM3 (9.4-12.4); MONOCYTES # (AUTO) 1.5 T/MM3 (0-0.8); NEUTROPHILS #(AUTO)-ABSOLUTE 8.6 T/MM3 (1.8-7.7); NEUTROPHILS % (AUTO) 78.1 % (33-66); RED BLOOD COUNT 3.91 M/MM3 (4.00-5.20)
[2017-02-22] MEDS: CARBIDOPA/LEVODOPA 25 MG/100 MG TABLET PO SCH ×4 (06:32→21:36)
--- NOTE | 2017-02-22 07:30 | NUR ---
O2 SAT ON RA, PT O2 SAT 88%. 1L O2 PER NC APPLIED. O2 SAT AT 94-96%. WILL CONTINUE TO MONITOR.
--- NOTE | 2017-02-22 08:02 | PDORTHOPN ---
Subjective Date DATE: 02/22/17 TIME: 07:57 Subjective Vernii is resting comfortably. She states her hip pain is tolerable. She denies other complaint. BP 187/81. Nurse reports she pulled out her IV and they are trying to replace it. Output has been 225 since midnight. Nurse states she will call medical service for further evaluation and orders. Objective Vital Signs Vital signs Vital Signs 02/21/17 02/21/17 02/22/17 02/22/17 20:41 21:00 00:47 04:39 Temp 97.4 98.9 98.7 Pulse 95 89 91 Resp 12 16 16 B/P 129/58 135/66 187/81 Pulse Ox 95 95 96 O2 Delivery Room Air Room Air Room Air 02/22/17 02/22/17 07:38 07:39 Temp 97.4 Pulse 95 95 Resp 18 18 B/P 134/65 Pulse Ox 94 O2 Delivery Nasal Cannula O2 Flow Rate 1.00 Height (Feet): 4 Height (Inches): 9.00 Weight (Kilograms): 52.900 General General Appearance: Alert, Well Nourished, Well Developed, No Acute Distress Respiratory (Brief) Respiratory Brief: FOUND: non-labored Cardiovascular (Brief) Cardiac: FOUND: calf easily compressible, calf soft, nontender, pedal pulses intact Capillary Refill: <2 sec Abdomen (Brief) Abdominal Brief: FOUND: non-tender Musculoskeletal (Brief) Hip: FOUND painful PROM, FOUND tender over trochanter, NOT FOUND abnormal rotation, NOT FOUND unequal leg length Musculoskeletal Brief: FOUND: loss of motion, spasm, tenderness, Not FOUND: deformity Surgical Site Incision: FOUND: dressing intact, no drainage Integumentary (Brief) Integumentary Brief: FOUND dry, FOUND pink, FOUND warm Neurologic (Brief) Neurological Brief: FOUND: extremities w/o deficits, neuro intact Psychiatric (Brief) Psychiatric Brief: FOUND: no acute distress Laboratory Laboratory Laboratory Tests 02/21/17 04:06 02/22/17 04:34 Laboratory Tests 02/20/17 20:08 02/21/17 04:06 02/22/17 04:34 Assessment & Plan Problems: (1) Hypertension Status: Chronic Assessment & Plan: per medical team (2) Closed intertrochanteric fracture of right hip Status: Acute Assessment & Plan: S/P IM nail on 02/21/[address] John WBAT Lovenox 40mg SQ Q Day for 30 days for DVT prevention continue medical management of hypertension and urinary output. Hospital Course Summary Disclaimer The visit summary below is not to be considered part of the above Progress Note. Hospital Course ADMIT 02/20/17 1). Intertrochanteric fracture of right femur 2. Hypertension, well controlled. The current plan is to have patient nothing by mouth after midnight and in the meantime a letter have a full liquid diet. Also we plan to give her Dilaudid along with Zofran for emesis and pain control prior to surgery. Orthopedic surgery has been contacted. OP DAY 02/21/17 Cr and GFR both improved slightly. Hgb stable. Leukocytosis - suspect stress response. Reassess in am. HTN - resume amlodipine tomorrow am. Continue to hold Lasix, K, and benazepril until we can ensure postop BP, renal, and fluid status stabilization. Parkinson's with cognitive impairment; high risk for delirium - monitor closely. Start IVF - NS at 75 mL/hr - d/t NPO status. Advance diet as able, but will also obtain speech eval for dysphagia. SOHAN WEINBERG Feb 22, 2017 08:00
[2017-02-22] MEDS: FOLBIC TABLET PO SCH (08:28)
[2017-02-22] MEDS: SENNA + DOCUSATE TAB PO SCH ×2 (08:28→21:38)
[2017-02-22] MEDS: AMLODIPINE 2.5 MG TABLET PO SCH (08:28)
[2017-02-22] MEDS: AMANTADINE PO SCH ×2 (08:29→21:36)
[2017-02-22] MEDS: ENOXAPARIN 40 MG/0.4 ML INJECTION SQ SCH (08:49)
--- NOTE | 2017-02-22 09:02 | DI ---
Indication: ITS.REASON: RT GAMMA NAIL PROCEDURE: RF HIP RIGHT 2 VIEW: Encounter: Initial Comparison: Radiographs dated February 20, 2017 Findings: Five fluoroscopic spot images are submitted for interpretation. Images show open reduction and internal fixation of the right femoral fracture with placement of an intramedullary nail, compression screw and distal interlocking screw with improved alignment of the fracture fragments. Impression: Fluoroscopy as above. Fluoroscopy time is 60.9 seconds. Fluoroscopy dose is 775 mRad. .
--- NOTE | 2017-02-22 09:22 | STEVAL ---
Eval Subjective and History Date/Time of Eval DATE: 02/22/17 TIME: 09:05 Medical Diagnosis SPEECH THERAPY CONSULTATION FOR UNSPECIFIED DYSPHAGIA Treatment Order: Assessment, Dev./Imp. tx plan Orientations: Person, Cooperative Primary Complaint: RIGHT HIP FRACTURE Pain: Yes (GRIMACE WITH RESPOSITIONING- RN AWARE) Date of Onset of Primary Com: 02/21/2017 Secondary Complaint: PARKINSON'S DISEASE, R/O DYSPHAGIA Clinical Test Results: BEDSIDE DYSPHAGIA COMPLETED Prior History of This Problem: Yes (HX OF PARKINSON'S DISEASE) Patient's Goals: NONE STATED Significant Past Medical Hx: PMH: HTN, PARKINSON'S DISEASE Medical History Form Reviewed: Yes Residence Type: Skilled Nursing ([facility]) Lives With: Plugging Machine Operator Caregiver Status: Yes Prior Functional Status: UNKNOWN Current Functional Status: PATIENT IS AT AN INCREASED RISK OF ASPIRATION SECONDARY TO MEMORY LOSS, PARKINSON'S DISEASE AND CURRENT MEDICAL STATUS Education Subject: Diet, Treatment Plan Person(s) Educated: Patient Instruction Understanding Demo: Pt. verbalizes understand Education Comment STOCK CHECKER EDUCATED PATIENT ON REASONING FOR EVALUATION, SHE WAS AGREEABLE. 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 Subjective and History Comment: PRAVEEN WAS EVALUATED SITTING UPRIGHT IN HER BED THIS MORNING. SHE WAS AGREEABLE TO HAVING AGENT CONTRACT CLERK CLINICIAN PARTICIPATE IN THE EVALUATION. SHE WAS WITHOUT ACUTE C/O PAIN, HOWEVER SHE DID GRIMACE WITH REPOSITIONING (RN AWARE). SHE WAS SOFT SPOKEN AND REPEATED WHAT THE CLINICIAN WAS SAYING INSTEAD OF ENGAGING IN HER OWN CONVERSATION. Dysphagia Evaluation Evaluation Location: Bed Evaluation Angle: 90 Oral Peripheral Exam-facial: Facial Symmetry: Generalized Facial Asymmetry Comment: BILATERALLY Tongue Elevation: Minimal Impairment Tongue Lateralization: Mild Impairment Tongue Protrusion: Minimal Impairment Tongue Retraction: No Impairment (WFL) Tongue Extension Midline: Minimal Impairment Labial Approximation: No Impairment (WFL) Intraoral Air Pressure: Minimal Impairment Volitional Cough: No Impairment (WFL) Palatal Elevation: Minimal Impairment Larynx Elevation During Swallo: Minimal Impairment Saliva Control: No Impairment (WFL) Dentition: Natural Oral Peripheral Exam Comment: PATIENTS LINGUAL RANGE OF MOTION MINIMALLY TO MILDLY IMPAIRED. PATIENT DEMONSTRATED REDUCED LATERALIZATION AND MINIMALLY REDUCED LINGUAL ELEVATION. PATIENTS INTRAORAL AIR PRESSURE MINIMALLY TO MILDLY IMPAIRED. PATIENTS HYOLARYNGEAL ELEVATION WAS MINIMALLY IMPAIRED WHEN PALPATED DURING DRY AND BOLUS SWALLOWS. SHE HAD FAIR NATURAL DENTITION. ORAL CAVITY APPEARED MOIST. Lip Seal: Adequate-liquid, Adequate-pudding, Adequate-solid Lingual Manipulation: Adequate-liquid, Adequate-pudding, Adequate-solid Chewing: Inadequate-solid Oral cavity clear post swallow: Adequate-liquid, Adequate-pudding, Adequate- solid Swallow initiated w/o delay: Adequate-liquid, Adequate-pudding, Adequate-solid Multiple swallows not needed: Adequate-liquid, Adequate-pudding, Adequate-solid Voice clear&dry post swallow: Adequate-liquid, Adequate-pudding, Adequate-solid No cough/throat clear: Adequate-liquid, Adequate-pudding, Adequate-solid Comments PRAVEEN WAS REPOSITIONED UPRIGHT IN BED. SHE WAS GIVEN THERAPEUTIC TRIALS OF ICE CHIPS x3 WITH PROMPT SWALLOW RESPONSE AND NO CLINICAL S/S OF ASPIRATION. SHE WAS THEN GIVEN THERAPEUTIC TRIALS OF THIN WATER VIA CUP AND STRAW. PATIENT WITH SERIAL SIPS FROM STRAW WITH FAIR A/P TRANSFER AND NO CLINICAL S/S OF ASPIRATION. PATIENT CONSUMED SEVERAL SPOONFULS OF PUDDING WITH FAIR ORAL CLEARING, FAIR A/P TRANSFER, FAIR HYOLARYNGEAL ELEVATION UPON PALPATION, NO DELAY IN SWALLOW, AND NO CLINICAL S/S OF ASPIRATION. FINALLY, PATIENT MASTICATED SEVERAL BITES OF A JOSÉ MIGUEL CRACKER. MASTICATION WAS NOT LABORED, BUT WAS MINIMALLY REDUCED. PATIENT WITH FAIR ORAL CLEARING AND NO POCKETING APPRECIATED. RECOMMENDATIONS OUTLINED BELOW. Assessment/Plan of Care Speech Therapy Impressions: PATIENT PRESENTS WITH OROPHARYNGEAL DYSPHAGIA. RECOMMENDATIONS OUTLINED BELOW. ST Treatment Plan: Modified Diet ST Treatment Plan Frequency: one time per week Treatment Plan Duration: one week Plan of Care Comment RECOMMENDATIONS: 1) DIET MODIFICATION TO SOFT DIET WITH CHOPPED MEATS (LEVEL 3), THIN LIQUIDS ( STRAWS OK) - MEDICATIONS ONE AT A TIME IN PUDDING WITH SIPS OF WATER IN BETWEEN 2) SWALLOW PRECAUTIONS: FEED ONLY WHEN ALERT AND UPRIGHT, SMALL SIPS/BITES 3) SWALLOW STRATEGIES: FEEDER 4) CAN NOT EXCLUDE THE POSSIBILITY OF SILENT ASPIRATION, MAY BENEFIT FROM F/U MBSS IF INCONSISTENT S/S OF ASPIRATION ARE PRESENT 5) ST TO F/U TO ENSURE SAFEST, LEAST RESTRICTIVE ORAL DIET PRIOR TO D/C Date of Visit 02/22/17 Time Visit Began: 08:15 Time Visit Ended: 08:46 ST Assess/Plan of Care: ST Treatment Charge: Swallow Eval Minutes of Individual Therapy: 31 BRIANNE WYLIE MS CCC-STOCK CHECKER Feb 22, 2017 09:09
--- NOTE | 2017-02-22 10:07 | NUR ---
KEFZOL IV KEFZOL GIVEN LATE DUE TO PATIENT NOT HAVING IV ACCESS. MIDLINE IN PLACE NOW.
--- NOTE | 2017-02-22 10:45 | NUR ---
DR NOTIFICATION WHILE PT WAS BRUSING TEETH, SHE SPIT WATER OUT AFTER RINSING THEN BEGAN COUGHING. O2 SAT REMAINED STABLE AT 96-98%. NOTIFIED DMITRIY CRISTOBAL APRN. NO NEW ORDERS. WILL CONTINUE TO MONITOR.
[2017-02-22] MEDS ORDERED: ENOXAPARIN 40 MG/0.4 ML INJECTION SQ ONE (12:15)
--- NOTE | 2017-02-22 12:15 | PNPDOC ---
DMITRIY CRISTOBAL PHONE BANKER 02/22/17 1049: Subjective Date DATE: 02/22/17 TIME: 10:48 Subjective Swallowing, and they recommend a soft diet with chopped meats and thin liquids. Nursing staff reports that she had a rough night. She was combative, most of the night, and didn't sleep well. This morning, she is pleasant and calm, alert to self only. She did not remember that she broke her hip or had surgery. She also has had decreased urinary output, but renal status has remained stable. Her urine output was also borderline low on her day of admission. Her niece's report that she does not tend to drink or eat much. She was hypertensive postop , but is doing well this morning. Objective Vital Signs Vital signs Vital Signs Date Time Temp Pulse Resp B/P Pulse Ox O2 Delivery O2 Flow Rate FiO2 02/22/17 07:39 95 18 02/22/17 07:38 97.4 134/65 94 Nasal Cannula 1.00 Telemetry Rhythm: Sinus Rhythm Height (Feet): 4 Height (Inches): 9.00 Weight (Kilograms): 52.900 General General Appearance: Alert, Orientated x 1, Well Developed, No Acute Distress Eyes (Brief) Eyes: FOUND: PERRL, NOT FOUND: scleral icterus Respiratory (Brief) Respiratory: FOUND: rales (bibasilar) Comments Decreased air movement bilaterally Cardiovascular (Brief) Cardiac: FOUND: regular rate, regular rhythm, NOT FOUND: pedal edema Abdomen (Brief) Abdominal: FOUND: BS normo active x4, soft, NOT FOUND: distended, tender Extremities (Brief) Extremity : Side: Bilateral Extremity Finding: NOT FOUND: edema Musculoskeletal (Brief) Musculoskeletal: NOT FOUND: deformity Integumentary (Brief) Integumentary: FOUND: dry, pink, warm Comments Dressing to right hip is clean, dry and intact Psychiatric (Brief) Psychiatric: FOUND: alert, attentive, normal affect, oriented (1) Laboratory Laboratory Laboratory Tests 02/20/17 20:08 02/21/17 04:06 02/22/17 04:34 Laboratory Tests 02/21/17 04:06 02/22/17 04:34 Assessment & Plan Problems: (1) Encephalopathy Status: Acute (2) Hypernatremia Status: Acute Assessment & Plan: Not present on admission (3) Closed intertrochanteric fracture of right hip Status: Acute Assessment & Plan: Status post Cephalomedullary fixation of right intertrochanteric hip fracture on 02/21/17, Dr. Lopez (4) Leukocytosis Status: Resolved (5) Parkinson disease Status: Chronic Assessment & Plan: Uses a walker at baseline (6) Hypertension Status: Chronic Assessment 86 y/o woman status post ORIF right hip fracture; Parkinson's with cognitive impairment; delirium Plan/Intensity of Service Postop day #1 Blood pressure is stable, though was quite elevated postoperatively. She was given a dose of clonidine, which brought systolic down from 201-184. She is maintaining saturations on room air. Currently, though, was requiring 1 L of oxygen earlier this morning. IV fluids have been discontinued. She is having some postoperative complications consistent with delirium, which was not unexpected. Orthopedic notes reviewed: We'll start Lovenox for DVT prophylaxis 30 days. Mild oliguria, suspect an element of chronicity, based on niece's account. BUN and creatinine are normal. Continue to monitor. Speech therapy evaluated her, recommend a soft diet with chopped meats and thin liquids. Anticipate PT and OT evaluation today. Will discontinue Mir catheter as soon as possible. Hemoglobin decreased to 11.6. Continue to monitor. We'll continue to hold benazepril for now until we can ensure that renal status and oliguria have stabilized. DVT Prophylaxis: SCD'S, Lovenox Code Status Do Not Resuscitate Hospital Course Summary Disclaimer The hospital course summary below is not to be considered part of the above Progress Note. Hospital Course Summary ADMIT 02/20/17 1). Intertrochanteric fracture of right femur 2. Hypertension, well controlled. The current plan is to have patient nothing by mouth after midnight and in the meantime a letter have a full liquid diet. Also we plan to give her Dilaudid along with Zofran for emesis and pain control prior to surgery. Orthopedic surgery has been contacted. OP DAY 02/21/17 Cr and GFR both improved slightly. Hgb stable. Leukocytosis - suspect stress response. Reassess in am. HTN - resume amlodipine tomorrow am. Continue to hold Lasix, K, and benazepril until we can ensure postop BP, renal, and fluid status stabilization. Parkinson's with cognitive impairment; high risk for delirium - monitor closely. Start IVF - NS at 75 mL/hr - d/t NPO status. Advance diet as able, but will also obtain speech eval for dysphagia. 02/22/17 Postop day #1 Blood pressure is stable, though was quite elevated postoperatively. She was given a dose of clonidine, which brought systolic down from 201-184. She is maintaining saturations on room air. Currently, though, was requiring 1 L of oxygen earlier this morning. IV fluids have been discontinued. She is having some postoperative complications consistent with delirium, which was not unexpected. Orthopedic notes reviewed: We'll start Lovenox for DVT prophylaxis 30 days. Mild oliguria, suspect an element of chronicity, based on niece's account. BUN and creatinine are normal. Continue to monitor. Speech therapy evaluated her, recommend a soft diet with chopped meats and thin liquids. Anticipate PT and OT evaluation today. Will discontinue Mir catheter as soon as possible. Hemoglobin decreased to 11.6. Continue to monitor. We'll continue to hold benazepril for now until we can ensure that renal status and oliguria have stabilized. EVELYN MORGAN DO 02/22/17 2354: Assessment & Plan Plan/Intensity of Service 02/22/2017 Dr. Morgan note when I saw Eugenie Ha today she was not very talkative. She denied any shortness of breath and denied any chest pain. She denied abdominal pain and did admit that her hip hurts some. When asked if they had her up walking as she did not remain answered. Her nephew and niece were there in the room and they thought she was doing better than last night. I agree. Her heart demonstrates a regular rate and rhythm without murmur, lungs have some crackles in the bases but they are faint, abdomen is soft and nontender bowel sounds are present, extremities show no clubbing cyanosis or edema that I can find patient does not appear to be in any distress at clonidine I gave her the night before worked well and brought her pressure down pressures now of should be her diagnoses are as follows: Fracture of the right hip intratrochanteric type II. Encephalopathy, acute, hopefully she will resolve this and 3. Treatment but it's only 1.9 I think this will resolve on its own 4. Leukocytosis, resolved with parkinsonism, chronic with stop the IV we did a around 1 L of oxygen and Lovenox will be started she is making adequate progress on her first postop day. I reviewed the progress note by Ms. Cristobal and fully agree and improve with its sesamoids and plan. DMITRIY CRISTOBAL APRN Feb 22, 2017 10:49 EVELYN MORGAN DO Feb 22, 2017 23:54
[2017-02-22] MEDS ORDERED: NORMAL SALINE 250 ML IV SCH (15:00)
[2017-02-22] MEDS ORDERED: NORMAL SALINE 250 ML IV ONE (15:00)
--- NOTE | 2017-02-22 19:26 | NUR ---
STATUS PT ALERT TO PERSON. PLEASANTLY CONFUSED. PT COMPLIANT WITH CARES GIVEN. VS STABLE. PT ON RA, TOLERATING WELL. TOLERATING DIET WELL. ENCOURAGING FLUIDS. HAMILTON PATENT AND DRAINING. PT TRANSFERS WITH ASSIST OF 2 WITH WALKER AND GAIT BELT. PAIN WITH MOVEMENT, PRN TYLENOL GIVEN. PT RESTING IN BED WITH ALARM .CALL LIGHT WITHIN REACH. WILL CONTINUE TO MONITOR.
[2017-02-23] VITALS (8 sets, daily range): BP systolic 122–180; BP diastolic 58–86; PULSE 80–93; RESP 12–18; TEMP 96.9–98.5; O2SAT 93–100
[2017-02-23 05:36] LABS: BASOPHILS % (AUTO) 0.1 % (0-2); EOSINOPHILS # (AUTO) 0.1 T/MM3 (0-0.5); EOSINOPHILS % (AUTO) 1.4 % (0-4); HCT - HEMATOCRIT 30.8 % (36-46); HGB - HEMOGLOBIN 9.9 GM/DL (12-16); IMMATURE GRANULOCYTE # (AUTO) 0.01 T/MM3 (0.00-0.03); IMMATURE GRANULOCYTE % (AUTO) 0.1 % (0.0-0.5); LYMPHOCYTES # (AUTO) 1.3 T/MM3 (1-4.8); LYMPHOCYTES % (AUTO) 12.7 % (23-45); MEAN CORPUSCULAR HGB CONC(MCHC 32.1 GM/DL (31-37); MEAN CORPUSCULAR VOLUME 93.3 UM3 (80-100); MEAN PLATELET VOLUME 11.6 UM3 (9.4-12.4); MONOCYTES # (AUTO) 1.1 T/MM3 (0-0.8); MONOCYTES % (AUTO) 11.1 % (0-9.0); NEUTROPHILS #(AUTO)-ABSOLUTE 7.7 T/MM3 (1.8-7.7); NEUTROPHILS % (AUTO) 74.6 % (33-66); WBC - WHITE BLOOD COUNT 10.3 T/MM3 (4.5-11.0)
[2017-02-23 05:54] LABS: ANION GAP 6 MEQ/L (5-15); BUN/CREATININE RATIO 18 RATIO (6-26); CALCIUM 8.6 MG/DL (8.4-10.2); CHLORIDE 111 MEQ/L (98-107); CO2 - CARBON DIOXIDE 27 MEQ/L (22-30); CREATININE 1.1 MG/DL (0.7-1.2); GLOMERULAR FILTRATION RATE 47; GLUCOSE 105 MG/DL (65-110); POTASSIUM 3.4 MEQ/L (3.6-5); SODIUM 144 MEQ/L (134-144)
[2017-02-23] MEDS: CARBIDOPA/LEVODOPA 25 MG/100 MG TABLET PO SCH ×4 (06:35→21:28)
--- NOTE | 2017-02-23 07:47 | PDORTHOPN ---
Subjective Date DATE: 02/23/17 TIME: 07:46 Subjective Vera is resting comfortably. She states her hip pain is tolerable. She denies other complaint. Objective Vital Signs Vital signs Vital Signs 02/22/17 02/23/17 02/23/17 20:02 00:00 04:02 Temp 97.7 98.2 97.8 Pulse 77 82 80 Resp 14 12 12 B/P 137/63 122/58 152/67 Pulse Ox 97 97 95 O2 Delivery Room Air Room Air Nasal Cannula O2 Flow Rate 2.00 Height (Feet): 4 Height (Inches): 9.00 Weight (Kilograms): 52.900 General General Appearance: Alert, Well Nourished, Well Developed, No Acute Distress Respiratory (Brief) Respiratory Brief: FOUND: non-labored Cardiovascular (Brief) Cardiac: FOUND: calf easily compressible, calf soft, nontender, pedal pulses intact Capillary Refill: <2 sec Abdomen (Brief) Abdominal Brief: FOUND: non-tender Musculoskeletal (Brief) Hip: FOUND painful PROM, FOUND tender over trochanter, NOT FOUND abnormal rotation, NOT FOUND unequal leg length Musculoskeletal Brief: FOUND: loss of motion, spasm, tenderness, Not FOUND: deformity Surgical Site Incision: FOUND: dressing intact, no drainage Integumentary (Brief) Integumentary Brief: FOUND dry, FOUND pink, FOUND warm Neurologic (Brief) Neurological Brief: FOUND: extremities w/o deficits, neuro intact Psychiatric (Brief) Psychiatric Brief: FOUND: no acute distress Laboratory Laboratory Laboratory Tests 02/22/17 04:34 02/23/17 04:06 Laboratory Tests 02/22/17 04:34 02/23/17 04:06 Assessment & Plan Problems: (1) Hypertension Status: Chronic Assessment & Plan: per medical team (2) Closed intertrochanteric fracture of right hip Status: Acute Assessment & Plan: S/P IM nail on 02/21/[address] Lopez WBAT Lovenox 40mg SQ Q Day for 30 days for DVT prevention Hospital Course Summary Disclaimer The visit summary below is not to be considered part of the above Progress Note. Hospital Course ADMIT 02/20/17 1). Intertrochanteric fracture of right femur 2. Hypertension, well controlled. The current plan is to have patient nothing by mouth after midnight and in the meantime a letter have a full liquid diet. Also we plan to give her Dilaudid along with Zofran for emesis and pain control prior to surgery. Orthopedic surgery has been contacted. OP DAY 02/21/17 Cr and GFR both improved slightly. Hgb stable. Leukocytosis - suspect stress response. Reassess in am. HTN - resume amlodipine tomorrow am. Continue to hold Lasix, K, and benazepril until we can ensure postop BP, renal, and fluid status stabilization. Parkinson's with cognitive impairment; high risk for delirium - monitor closely. Start IVF - NS at 75 mL/hr - d/t NPO status. Advance diet as able, but will also obtain speech eval for dysphagia. 02/22/17 Postop day #1 Blood pressure is stable, though was quite elevated postoperatively. She was given a dose of clonidine, which brought systolic down from 201-184. She is maintaining saturations on room air. Currently, though, was requiring 1 L of oxygen earlier this morning. IV fluids have been discontinued. She is having some postoperative complications consistent with delirium, which was not unexpected. Orthopedic notes reviewed: We'll start Lovenox for DVT prophylaxis 30 days. Mild oliguria, suspect an element of chronicity, based on niece's account. BUN and creatinine are normal. Continue to monitor. Speech therapy evaluated her, recommend a soft diet with chopped meats and thin liquids. Anticipate PT and OT evaluation today. Will discontinue Mir catheter as soon as possible. Hemoglobin decreased to 11.6. Continue to monitor. We'll continue to hold benazepril for now until we can ensure that renal status and oliguria have stabilized. SOHAN WEINBERG Feb 23, 2017 07:47
--- NOTE | 2017-02-23 08:07 | NUR ---
Summary Pt alert to person, confused at times. Family was at bedside in the early evening. Pt denies pain. Repositioning done/offered Q2H through the night, hip px maintained. Pt had a snack of ice cream last night and drank water when offered. Pt was able to demonstrate appropriate use of the call light.
[2017-02-23] MEDS ORDERED: ENOXAPARIN 40 MG/0.4 ML INJECTION SQ SCH (09:00)
[2017-02-23] MEDS: SENNA + DOCUSATE TAB PO SCH ×2 (09:45→21:28)
[2017-02-23] MEDS: AMLODIPINE 2.5 MG TABLET PO SCH (09:45)
[2017-02-23] MEDS: FOLBIC TABLET PO SCH (09:45)
[2017-02-23] MEDS: AMANTADINE PO SCH ×2 (09:46→21:28)
[2017-02-23] MEDS: ENOXAPARIN 40 MG/0.4 ML INJECTION SQ SCH (09:49)
--- NOTE | 2017-02-23 10:18 | STDAILYN ---
ST Daily Note Date/Time DATE: 02/23/17 TIME: 09:52 Subjective Comment Upon arrival, Eugenie was laying down in bed being served breakfast by kitchen staff. Pt. was positioned upright with the assistance of Pt.'s nurse and [employer]AT [employer] Hema. Pt. was in a pleasant mood and reported that she slept well last night. Pt. was without c/o pain or fatigue. Pt. agreed to graduate clinician, Ellie, providing therapy while being supervised by BOAT MOTOR MECH[employer]IC Hema. Orientations: Person, Alert, Cooperative Chief Complaint: RT HIP FX, Oropharyngeal Dysphagia Pain: No (Pt. reported of having no pain during session) Was Patient Education Provided: Yes Education Subject: Treatment Plan Instruction Understanding Demo: Pt. verbalizes understand Education Comment Patient was educated on modified diet. Patient verbalized understanding. *Speech Therapy Impressions Patient was given trials of wheat toast with butter, a banana, thin orange juice , and thin water via cup & straw. Patient demonstrated adequate labial closure and lingual manipulation during all trials of solids and liquids. Her laryngeal elevation deemed within functional limits and exhibited a clear oral cavity post swallow on all consistencies. Patient reported having no difficulties swallowing during meal. No s/s of aspiration were observed. Patient produced a clear and dry voice post all swallows. It is recommended to discharge patient based on meeting dysphagia goal and demonstrating no s/s of aspiration on current diet. Recommendations of soft chopped meats, thin liquids. ST Treatment Plan: N/A ST Treatment Plan Frequency: N/A Treatment Plan Duration: discontinue therapy Plan of Care Comment: Pt. met dysphagia goal and is consuming the least restrictive diet with no s/s of aspiration Start Treatment 1: 09:10 Stop Treatment 1: 09:35 Treatment Duration : ST Treatment Charge: Swallow Treatment Minutes of Individual Therapy: 25 ELLIE TIDWELL Feb 23, 2017 09:55
--- NOTE | 2017-02-23 10:59 | STDAILYN ---
Discharge Note Date/Time DATE: 02/23/17 TIME: 10:58 Discharge From: Inpatient ST Reason for Discharge: All Goals Met Discharge Summary: PRAVEEN MET HER DYSPHAGIA GOALS- SHE IS CONSUMING A LEAST RESTRICTIVE ORAL DIET OF SOFT/CHOPPED WITH REGULAR LIQUIDS Recommended Follow-up: Return to Physician BRIANNE WYLIE MS CCC-ACCOUNTING GENERALIST Feb 23, 2017 10:59
--- NOTE | 2017-02-23 11:06 | PNPDOC ---
Subjective Date DATE: 02/23/17 TIME: 11:01 Subjective 02/23/2017 Eddie note: I saw Eugenie Ha in her room today. She is still trying to eat breakfast. I discussed refilling she said okay I guess. I asked her she was having any shortness of breath and she suggests that area I asked her she was having chest pain she said no. I asked her she was having pain with her operated hip and she set I guess not. Asked her she was having any timely problems or problems with her food and she said no she is more alert today and seems happier she smiles more. This is a postop day 2 after her surgery. Objective Vital Signs Vital signs Heart has a regular rate and rhythm without murmur Lungs are clear to auscultation bilaterally without wheezes, perhaps a few crackles in the bases Abdomen is soft, nontender, bowel sounds are present Extremities show no clubbing, no cyanosis or edema. Integument shows no bruising and no rash. Vital signs are stable although she did spike a systolic blood pressure this morning of 157. Vital Signs Date Time Temp Pulse Resp B/P Pulse Ox O2 Delivery O2 Flow Rate FiO2 02/23/17 10:22 80 16 02/23/17 08:09 96.9 157/67 96 Room Air 02/23/17 04:02 2.00 Telemetry Rhythm: Sinus Rhythm Height (Feet): 4 Height (Inches): 9.00 Weight (Kilograms): 53.900 Laboratory Laboratory Laboratory Tests 02/22/17 04:34 02/23/17 04:06 Laboratory Tests 02/22/17 04:34 02/23/17 04:06 Assessment & Plan Problems: (1) Encephalopathy Status: Acute (2) Hypernatremia Status: Acute Assessment & Plan: Not present on admission (3) Closed intertrochanteric fracture of right hip Status: Acute Assessment & Plan: Status post Cephalomedullary fixation of right intertrochanteric hip fracture on 02/21/17, Dr. Lopez (4) Leukocytosis Status: Resolved (5) Parkinson disease Status: Chronic Assessment & Plan: Uses a walker at baseline (6) Hypertension Status: Chronic Assessment 86 y/o woman status post ORIF right hip fracture; Parkinson's with cognitive impairment; delirium Plan/Intensity of Service 02/23/2017 Marcus diagnoses remain as follows: Intertrochanteric fracture of the right hip; 2. Leukocytosis, resolved 3. Hyponatremia, resolved and 4. Acute encephalopathy, resolved. There is is progressing nicely and we'll keep a close eye on her blood pressure. Plan is to continue the present care. Code Status Do Not Resuscitate Hospital Course Summary Disclaimer The hospital course summary below is not to be considered part of the above Progress Note. Hospital Course Summary ADMIT 02/20/17 1). Intertrochanteric fracture of right femur 2. Hypertension, well controlled. The current plan is to have patient nothing by mouth after midnight and in the meantime a letter have a full liquid diet. Also we plan to give her Dilaudid along with Zofran for emesis and pain control prior to surgery. Orthopedic surgery has been contacted. OP DAY 02/21/17 Cr and GFR both improved slightly. Hgb stable. Leukocytosis - suspect stress response. Reassess in am. HTN - resume amlodipine tomorrow am. Continue to hold Lasix, K, and benazepril until we can ensure postop BP, renal, and fluid status stabilization. Parkinson's with cognitive impairment; high risk for delirium - monitor closely. Start IVF - NS at 75 mL/hr - d/t NPO status. Advance diet as able, but will also obtain speech eval for dysphagia. 02/22/17 Postop day #1 Blood pressure is stable, though was quite elevated postoperatively. She was given a dose of clonidine, which brought systolic down from 201-184. She is maintaining saturations on room air. Currently, though, was requiring 1 L of oxygen earlier this morning. IV fluids have been discontinued. She is having some postoperative complications consistent with delirium, which was not unexpected. Orthopedic notes reviewed: We'll start Lovenox for DVT prophylaxis 30 days. Mild oliguria, suspect an element of chronicity, based on niece's account. BUN and creatinine are normal. Continue to monitor. Speech therapy evaluated her, recommend a soft diet with chopped meats and thin liquids. Anticipate PT and OT evaluation today. Will discontinue Mir catheter as soon as possible. Hemoglobin decreased to 11.6. Continue to monitor. We'll continue to hold benazepril for now until we can ensure that renal status and oliguria have stabilized. EVELYN HOOVER DO Feb 23, 2017 11:04
--- NOTE | 2017-02-23 14:53 | CONSPD ---
Consultation Info Date DATE: 02/23/17 TIME: 14:[address] Lopez Impression/Recommendation Impression/Recommendation: (1) Hypertension Status: Chronic Recommendation: per medical team (2) Closed intertrochanteric fracture of right hip Status: Acute Recommendation: S/P IM nail on 02/21/[address] Lopez WBAT Lovenox 40mg SQ Q Day for 30 days for DVT prevention (3) Osteopenia Status: Chronic Recommendation: Take calcium and vitamin D. We'll followup in about 2 months. We'll send a letter to her family physician suggesting bone density study. Ortho HPI HPI Elements Location: FOUND hip (right) Injury: Yes (Fell at the [facility] in [place].) Pain: FOUND sharp Onset: Sudden (Fell 02/20/17.) Radiating: No Severity: FOUND moderate, FOUND severe Duration: FOUND other (Fell late morning 02/20/17) Previous Surgery: No Previous Injury: No Aggrevated by: FOUND all activity Treatments Tried: FOUND pain medications, FOUND rest X-ray Findings: FOUND intertrochanteric fx (of the right hip.) Recommendation: FOUND other (Internal fixation with cephalomedullary device.) HPI Residence at [facility] in [facility]. Got up to go to the bathroom and her foot stuck on the floor causing her to fall and break her right hip. Has Parkinson's disease and ambulates with a walker routinely. Review of Systems Constitutional: REPORTS: see HPI, DENIES: chills, dizziness, early awakening, fever, insomnia, weight loss Cardiovascular DENIES: chest pain, dyspnea on exertion, murmur, orthopnea, paroxysmal nocturnal dysp Rhythm/Rate: DENIES: irregular beat, palpitations, tachycardia Vascular: DENIES: Raynaud's, atrophy, intermittent claudication Pulmonary Respiratory: DENIES: cough, dyspnea, hyperventilation, pleuritic chest pain, sputum, tachypnea GI Upper Abdomen: DENIES: dysphagia, food intolerances, heartburn/indigestion, hematemesis, nausea General: DENIES: burning, dysuria, frequency, urgency Musculoskeletal General: DENIES: cramps, pain Lumbar: DENIES: spasm Integumentary Skin: DENIES: color change, itching, rash Hair: DENIES: alopecia, dandruff Nails: DENIES: paronychia, subungal hematoma Breasts: DENIES: discharge, lumps, symmetry, tenderness Neurological General: DENIES: ataxia, headache, numbness, paralysis/paresis, tremor, weakness Psychiatric Psychiatric: DENIES: anxiety, depression, emotional instability, irritability, nervousness, suicidal ideation/attempt Endocrine DENIES: heat/cold intolerance, polyphagia Hematologic/Lymphatic DENIES: anemia, bleeding gums, easy bruising, frequent nosebleeds Allergic/Immunological DENIES: frequent infections, sneezing All Other Systems Reviewed (remainder of 10-point ROS Neg.) Past Medical History Adult Past Medical History Patient History: (1) Hypertension (2) Parkinson disease Surgical History Patient's Surgical History: Appendectomy Current Medications Acetaminophen (Acetaminophen) 500 Mg Tablet, 1 TAB PO Q4H, (Reported) Do not exceed 3,200 mg of acetaminophen in a 24 hours period. Last Taken: Unknown Dose on Unknown Date & Time Amantadine HCl (Amantadine) 100 Mg Tablet, 0.5 TAB PO BID, (Reported) Last Taken: Unknown Dose on 02/20/17 0800 Amlodipine Besylate (Amlodipine Besylate) 2.5 Mg Tablet, 2.5 MG PO DAILY, (Reported) Last Taken: Unknown Dose on 02/20/17 0800 Benazepril HCl (Benazepril HCl) 10 Mg Tablet, 1 TAB PO DAILY, (Reported) Last Taken: Unknown Dose on 02/20/17 0800 Carbidopa/Levodopa (Sinemet 25-100 mg Tablet) 1 Each Tablet, 1 TAB PO QID/E, (Reported) BEST ON AN EMPTY STOMACH. Last Taken: Unknown Dose on 02/20/17 1000 Cyanocobalamin/FA/Pyridoxine ( Homocysteine Formula Tablet) 1 Each Tablet, 1 TAB PO DAILY, (Reported) Last Taken: Unknown Dose on Unknown Date & Time Diphenhydramine HCl/Zinc Acet (Benadryl Itch Stopping Crm) 28 Applic/28.3 G Cr, 1 APPLIC TOP QID PRN for ITCHING, (Reported) apply to inner thighs PRN. May apply instead of or with Hydrocortisone cream Last Taken: Unknown Dose on Unknown Date & Time Furosemide (Lasix) 40 Mg Tablet, 1 TAB PO DAILY, (Reported) Last Taken: Unknown Dose on 02/20/17 0800 Hydrocortisone Acetate/Aloe V ( Hydrocortisone-Aloe 0.5% Cream) 28.4 Gm Cream..g., 1 APPLIC TOP TID PRN for ITCHING, (Reported) Apply to area of inner thigh PRN (May apply instead of or with Benadryl cream ) Last Taken: Unknown Dose on Unknown Date & Time Lidocaine Gel (Glydo 2%) 11 Ml Jel.pf.shanon, 1 APPLIC TOP TID PRN for PAIN, (Reported) Apply to back PRN, offer TID Last Taken: Unknown Dose on Unknown Date & Time Potassium Chloride ( Potassium Chloride) 10 Meq Tablet.er, 30 MEQ PO DAILY, (Reported) Take 1 tablet, by mouth, daily with breakfast Last Taken: Unknown Dose on 02/20/17 0800 Trolamine Salicylate/Aloe Vera ( Aspercreme 10% Cream) 35.4 Gm Cream..g., 1 APPLIC TOP PRN, (Reported) Last Taken: Unknown Dose on Unknown Date & Time Allergies Allergies: Coded Allergies: NKDA (Verified Allergy, Unknown, 02/20/17) Family History Family History: Her family history is noncontributory. Vaccines Unable to recall No Social History Smoking Status: Never smoker Does patient use chewing tobac: No Second Hand Exposure: No Substance Use Type: does not use Alcohol Intake: none Marital Status: Sexuality: male partner Housing: custodial Number of Children: 0 Service: No Current Occupational Status: retired Occupational Hazard: No Advance Directives: Yes DPOA for Healthcare Only (Iris Chaney) Physical Exam General General: well developed, no acute distress Respiratory FOUND non-labored Cardiovascular FOUND pedal pulses intact Capillary Refill: <2 sec Musculoskeletal Musculoskeletal : Hip: FOUND painful PROM, FOUND tender over trochanter, NOT FOUND abnormal rotation, NOT FOUND unequal leg length Musculoskeletal Brief: FOUND: loss of motion, spasm, tenderness, Not FOUND: deformity Integumentary FOUND dry, FOUND pink, FOUND warm Neurologic FOUND intact to light touch, FOUND no deficits Psychiatric FOUND alert, FOUND normal affect Laboratory Laboratory Tests Test 02/23/17 04:06 White Blood Count 10.3T/MM3 Red Blood Count 3.30M/MM3 Hemoglobin 9.9GM/DL Hematocrit 30.8% Mean Corpuscular Volume 93.3UM3 Mean Corpuscular Hemoglobin 30.0UUG Mean Corpuscular Hemoglobin Concent 32.1GM/DL RDW Standard Deviation 50.3FL Platelet Count 217T/MM3 Mean Platelet Volume 11.6UM3 Immature Granulocyte % (Auto) 0.1% Neutrophils (%) (Auto) 74.6% Lymphocytes (%) (Auto) 12.7% Monocytes (%) (Auto) 11.1% Eosinophils (%) (Auto) 1.4% Basophils (%) (Auto) 0.1% Absolute Immature Granulocyte (auto 0.01T/MM3 Absolute Neutrophils (auto) 7.7T/MM3 Absolute Lymphocytes (auto) 1.3T/MM3 Absolute Monocytes (auto) 1.1T/MM3 Absolute Eosinophils (auto) 0.1T/MM3 Absolute Basophils (auto) 0.0T/MM3 Turbidity < 20 Sodium Level 144MEQ/L Potassium Level 3.4MEQ/L Chloride Level 111MEQ/L Carbon Dioxide Level 27MEQ/L Anion Gap 6MEQ/L Blood Urea Nitrogen 20.0MG/DL Creatinine 1.1MG/DL Glomerular Filtration Rate Calc 47 BUN/Creatinine Ratio 18RATIO Glucose Level 105MG/DL Calculated Osmolality 280MOSM/KG Calcium Level 8.6MG/DL Icterus Index < 2 Chemistry Specimen Hemolysis < 15 Case Report- BMD Demographics Date of Initial Screening: Feb 23, 2017 Age 86 Date of Fracture: Feb 20, 2017 Gender: Female If female: postmenopausal Race White Height (Feet): 4 Height (Inches): 9.00 Weight (Kilograms): 53.900 Site of Current Fracture Lower Limb: hip (proximal femur) Fracture History History of fracture age 50 or: No Risk Factors History of Rheumatoid Arthriti: No Secondary Osteoporosis d/t con: No Treatment/Counseling Calcium 1200 mg/day (in divide: yes Vitamin D at least 800-1000 IU: yes Regular Weight Bearing and Mus: yes Fall Prevention: yes Smoking Cessation: yes Alcohol Comsumption (no more t: yes Pharmacologic Treatment Recomend Pharmacologic Therapy: No Therapy not recommended due to: bone health assessment ongoing Pharmacologic Therapy Initiate: No Reason Not Initiating Therapy: tx planned for near future Bone Mineral Density Testing Was BMD Testing Recommended?: Yes BMD Testing: planned/scheduled Written Communication Was pt provided with a letter: Yes Letter Provided to pts PCP?: Yes Discharge Status: discharge to SNF/rehab SAMI CEDILLO MD Feb 23, 2017 14:52
--- NOTE | 2017-02-23 15:00 | NUR ---
ASSUMED PT CARE AT THIS TIME, PT SITTING UP IN RECLINER, WILL CONTINUE TO MONITOR.
--- NOTE | 2017-02-23 15:04 | NUR ---
SHERLY Pt A/O to self, first name only, when asked for date of , she states, "maybe July." Cooperative with cares. Speech is clear. Needs assist x1 to feed. Repositioned every 2hr. Diminished lung jackson, respirations even, unlabored, shallow. Hypooactive BSx4. Abd soft. Continues with compression devices, calf only. Max assist x2 for cares, transfers. Yells out at time in pain. Had PRN pain medication after lunch this afternoon. PT in to work with pt after lunch. Applied O2 at 1330 as O2 sats dropped to 88%. Will continue to monitor.
--- NOTE | 2017-02-23 17:23 | NUR ---
CM SPOKE WITH PT. INTRODUCED SELF, EXPLAINED ROLE. SHE SAID HER DC PLAN IS STILL TO RETURN TO [facility] IN [place].
--- NOTE | 2017-02-23 19:47 | NUR ---
PROGRESS NOTE PT IS RESTING IN BED, CALL LIGHT WITHIN REACH AT THIS TIME. PT IS ALERT TO PERSON AT THIS TIME. VITAL SIGNS STABLE ON RA. PT WAS WEENED FROM O2 THIS SHIFT AND HAS TOLERATED WELL. THE PT WAS UP IN THE RECLINER FROM 1500 UNTIL ABOUT 1830 AND RETURNED TO BED WITH A X2 MAX ASSIST. PT HAS SCDS IN PLACE, NO CONCERNS NOTED AT THIS TIME.
[2017-02-24] VITALS (8 sets, daily range): BP systolic 141–184; BP diastolic 69–80; PULSE 77–95; RESP 16–20; TEMP 97.6–98.9; O2SAT 94–100
--- NOTE | 2017-02-24 05:49 | NUR ---
SHIFT SUMMARY PATIENT IS ALERT AND ORIENTED TO SELF AND PLACE THIS SHIFT. PATIENT HAS HAD RANDOM OCCURRENCES OF INCREASED CONFUSION, BUT IS EASILY REDIRECTED THIS SHIFT. VITAL SIGNS HAVE BEEN STABLE ON ROOM AIR. PATIENT HAS REPORTED NO PAIN THIS SHIFT. ACCORDING TO REPORT PATIENT IS UP TO CHAIR WITH 2-3 ASSIST, BUT HAS NOT BEEN OUT OF BED THIS SHIFT. MIDLINE WAS FOUND TO FLUSH AT THE BEGINNING OF SHIFT, BUT DOES NOT DRAW. WILL CONTINUE TO MONITOR.
[2017-02-24 06:23] LABS: BASOPHILS % (AUTO) 0.2 % (0-2); EOSINOPHILS # (AUTO) 0.2 T/MM3 (0-0.5); EOSINOPHILS % (AUTO) 2.2 % (0-4); HCT - HEMATOCRIT 31.3 % (36-46); HGB - HEMOGLOBIN 10.2 GM/DL (12-16); IMMATURE GRANULOCYTE # (AUTO) 0.03 T/MM3 (0.00-0.03); IMMATURE GRANULOCYTE % (AUTO) 0.3 % (0.0-0.5); LYMPHOCYTES # (AUTO) 1.1 T/MM3 (1-4.8); LYMPHOCYTES % (AUTO) 11.9 % (23-45); MEAN CORPUSCULAR HGB 30.2 UUG (26-34); MEAN CORPUSCULAR HGB CONC(MCHC 32.6 GM/DL (31-37); MEAN CORPUSCULAR VOLUME 92.6 UM3 (80-100); MEAN PLATELET VOLUME 11.1 UM3 (9.4-12.4); MONOCYTES # (AUTO) 0.8 T/MM3 (0-0.8); MONOCYTES % (AUTO) 8.8 % (0-9.0); NEUTROPHILS #(AUTO)-ABSOLUTE 7.1 T/MM3 (1.8-7.7); NEUTROPHILS % (AUTO) 76.6 % (33-66); RED BLOOD COUNT 3.38 M/MM3 (4.00-5.20); WBC - WHITE BLOOD COUNT 9.3 T/MM3 (4.5-11.0)
[2017-02-24 06:32] LABS: ANION GAP 8 MEQ/L (5-15); BUN/CREATININE RATIO 16 RATIO (6-26); CALCIUM 8.9 MG/DL (8.4-10.2); CHLORIDE 107 MEQ/L (98-107); CO2 - CARBON DIOXIDE 26 MEQ/L (22-30); CREATININE 0.9 MG/DL (0.7-1.2); GLOMERULAR FILTRATION RATE 59; GLUCOSE 138 MG/DL (65-110); POTASSIUM 3.2 MEQ/L (3.6-5); SODIUM 141 MEQ/L (134-144)
[2017-02-24] MEDS: CARBIDOPA/LEVODOPA 25 MG/100 MG TABLET PO SCH ×4 (07:01→21:39)
--- NOTE | 2017-02-24 08:06 | PDORTHOPN ---
Subjective Date DATE: 02/24/17 TIME: 08:05 Subjective Vernii is resting comfortably. She states her hip pain is tolerable. She denies other complaint. Objective Vital Signs Vital signs Vital Signs 02/23/17 02/24/17 02/24/17 20:30 00:23 04:12 Temp 98.5 98.4 97.8 Pulse 82 77 85 Resp 12 16 20 B/P 166/86 163/69 159/78 Pulse Ox 93 99 96 O2 Delivery Room Air Room Air Room Air Height (Feet): 4 Height (Inches): 9.00 Weight (Kilograms): 53.900 General General Appearance: Alert, Well Nourished, Well Developed, No Acute Distress Respiratory (Brief) Respiratory Brief: FOUND: non-labored Cardiovascular (Brief) Cardiac: FOUND: calf easily compressible, calf soft, nontender, pedal pulses intact Capillary Refill: <2 sec Abdomen (Brief) Abdominal Brief: FOUND: non-tender Musculoskeletal (Brief) Hip: FOUND painful PROM, FOUND tender over trochanter, NOT FOUND abnormal rotation, NOT FOUND unequal leg length Musculoskeletal Brief: FOUND: loss of motion, spasm, tenderness, Not FOUND: deformity Surgical Site Incision: FOUND: dressing intact, no drainage Integumentary (Brief) Integumentary Brief: FOUND dry, FOUND pink, FOUND warm Neurologic (Brief) Neurological Brief: FOUND: extremities w/o deficits, neuro intact Psychiatric (Brief) Psychiatric Brief: FOUND: no acute distress Laboratory Laboratory Laboratory Tests 02/23/17 04:06 02/24/17 06:06 Laboratory Tests 02/23/17 04:06 02/24/17 06:06 Assessment & Plan Problems: (1) Hypertension Status: Chronic Assessment & Plan: per medical team (2) Closed intertrochanteric fracture of right hip Status: Acute Assessment & Plan: S/P IM nail on 02/21/[address] Lopez WBAT Lovenox 40mg SQ Q Day for 30 days for DVT prevention Orthopaedically ready for discharge when medically cleared. (3) Osteopenia Status: Chronic Assessment & Plan: Take calcium and vitamin D. We'll followup in about 2 months. We'll send a letter to her family physician suggesting bone density study. Hospital Course Summary Disclaimer The visit summary below is not to be considered part of the above Progress Note. Hospital Course ADMIT 3/26/17 1). Intertrochanteric fracture of right femur 2. Hypertension, well controlled. The current plan is to have patient nothing by mouth after midnight and in the meantime a letter have a full liquid diet. Also we plan to give her Dilaudid along with Zofran for emesis and pain control prior to surgery. Orthopedic surgery has been contacted. OP DAY 02/21/17 Cr and GFR both improved slightly. Hgb stable. Leukocytosis - suspect stress response. Reassess in am. HTN - resume amlodipine tomorrow am. Continue to hold Lasix, K, and benazepril until we can ensure postop BP, renal, and fluid status stabilization. Parkinson's with cognitive impairment; high risk for delirium - monitor closely. Start IVF - NS at 75 mL/hr - d/t NPO status. Advance diet as able, but will also obtain speech eval for dysphagia. 02/22/17 Postop day #1 Blood pressure is stable, though was quite elevated postoperatively. She was given a dose of clonidine, which brought systolic down from 201-184. She is maintaining saturations on room air. Currently, though, was requiring 1 L of oxygen earlier this morning. IV fluids have been discontinued. She is having some postoperative complications consistent with delirium, which was not unexpected. Orthopedic notes reviewed: We'll start Lovenox for DVT prophylaxis 30 days. Mild oliguria, suspect an element of chronicity, based on niece's account. BUN and creatinine are normal. Continue to monitor. Speech therapy evaluated her, recommend a soft diet with chopped meats and thin liquids. Anticipate PT and OT evaluation today. Will discontinue Mir catheter as soon as possible. Hemoglobin decreased to 11.6. Continue to monitor. We'll continue to hold benazepril for now until we can ensure that renal status and oliguria have stabilized. SOHAN WEINBERG Feb 24, 2017 08:06
[2017-02-24] MEDS: FOLBIC TABLET PO SCH (08:46)
[2017-02-24] MEDS: AMLODIPINE 2.5 MG TABLET PO SCH (08:46)
[2017-02-24] MEDS: SENNA + DOCUSATE TAB PO SCH ×2 (08:46→21:00)
[2017-02-24] MEDS: ENOXAPARIN 40 MG/0.4 ML INJECTION SQ SCH (08:47)
[2017-02-24] MEDS: AMANTADINE PO SCH ×2 (08:47→21:38)
--- NOTE | 2017-02-24 11:10 | NUR ---
KARLA CM IN TO VISIT WITH PT. SHE IS ALERT AND ORIENTED. SHE CONFIRMS THAT SHE PLANS TO RETURN TO [facility] FOR SNF. SHE IS MADE AWARE THAT DC IS POSSIBLE TOMORROW. KARLA ALSO SPOKE WITH YOCASTA, TOPHER, AND SHANA AT [facility] TO LET THEM KNOW THAT PT MAY DC TOMORROW.
--- NOTE | 2017-02-24 14:12 | PNPDOC ---
Subjective Date DATE: 02/24/17 TIME: 13:57 Subjective 02/24/2017 Dr. Morgan note: Eugenie Ha is sitting in a chair watching television today. She smiles a lot and says she feels a lot better today. She is oriented 2. She denies any chest pain. She denies any shortness of breath. Denies any nausea vomiting or diarrhea. And says she is able to stand up fairly well. When asked if she was using the incentive spirometry she said she did did not go it along to. I explained it was for her and that she should use it. I explained how to use it. I then went and got the nurse and she came in and demonstrate demonstrated ends and we're began using it and did quite well. When I told her she probably be ready to have it out without remove the days she said that was fine she she knows she gets to go to rehabilitation next. Objective Vital Signs Vital signs Heart regular rate and rhythm Lungs are clear to auscultation without wheezes Extremities show no cyanosis and no edema Abdomen is soft bowel sounds are present; it is nontender Integument shows no rashes and no bruising; skin is warm and dry and pink Vital Signs Date Time Temp Pulse Resp B/P Pulse Ox O2 Delivery O2 Flow Rate FiO2 02/24/17 11:51 98.9 83 16 141/73 98 Room Air 02/23/17 19:56 1.00 Telemetry Rhythm: Sinus Rhythm Height (Feet): 4 Height (Inches): 9.00 Weight (Kilograms): 53.900 Laboratory Laboratory Laboratory Tests 02/23/17 04:06 02/24/17 06:06 Laboratory Tests 02/23/17 04:06 02/24/17 06:06 Assessment & Plan Problems: (1) Encephalopathy Status: Acute (2) Hypernatremia Status: Acute Assessment & Plan: Not present on admission (3) Closed intertrochanteric fracture of right hip Status: Acute Assessment & Plan: Status post Cephalomedullary fixation of right intertrochanteric hip fracture on 02/21/17, Dr. Lopez (4) Leukocytosis Status: Resolved (5) Parkinson disease Status: Chronic Assessment & Plan: Uses a walker at baseline (6) Hypertension Status: Chronic Assessment 86 y/o woman status post ORIF right hip fracture; Parkinson's with cognitive impairment; delirium Plan/Intensity of Service 02/25/2017 Marcus diagnoses are as follows: Fracture of the right hip, intertrochanteric; 2. Encephalopathy acute, resolved 3. Mild hypernatremia, resolved 4. Leukocytosis, resolved 5. Parkinson's disease, manic and 6. A new problem has arisen with her potassium dropping to 3.2 hypokalemia plan is to continue IV fluids and will add that 2 doses of KCl by mouth today or tomorrow, which ought to help fix the hypokalemia. Eugenie is doing well and will probably be transferred to rehabilitation tomorrow. Code Status Do Not Resuscitate Hospital Course Summary Disclaimer The hospital course summary below is not to be considered part of the above Progress Note. Hospital Course Summary ADMIT 02/20/17 1). Intertrochanteric fracture of right femur 2. Hypertension, well controlled. The current plan is to have patient nothing by mouth after midnight and in the meantime a letter have a full liquid diet. Also we plan to give her Dilaudid along with Zofran for emesis and pain control prior to surgery. Orthopedic surgery has been contacted. OP DAY 02/21/17 Cr and GFR both improved slightly. Hgb stable. Leukocytosis - suspect stress response. Reassess in am. HTN - resume amlodipine tomorrow am. Continue to hold Lasix, K, and benazepril until we can ensure postop BP, renal, and fluid status stabilization. Parkinson's with cognitive impairment; high risk for delirium - monitor closely. Start IVF - NS at 75 mL/hr - d/t NPO status. Advance diet as able, but will also obtain speech eval for dysphagia. 02/22/17 Postop day #1 Blood pressure is stable, though was quite elevated postoperatively. She was given a dose of clonidine, which brought systolic down from 201-184. She is maintaining saturations on room air. Currently, though, was requiring 1 L of oxygen earlier this morning. IV fluids have been discontinued. She is having some postoperative complications consistent with delirium, which was not unexpected. Orthopedic notes reviewed: We'll start Lovenox for DVT prophylaxis 30 days. Mild oliguria, suspect an element of chronicity, based on niece's account. BUN and creatinine are normal. Continue to monitor. Speech therapy evaluated her, recommend a soft diet with chopped meats and thin liquids. Anticipate PT and OT evaluation today. Will discontinue Mir catheter as soon as possible. Hemoglobin decreased to 11.6. Continue to monitor. We'll continue to hold benazepril for now until we can ensure that renal status and oliguria have stabilized. EVELYN MORGAN DO Feb 24, 2017 14:01
--- NOTE | 2017-02-24 18:17 | NUR ---
STATUS PT A/O TO PERSON AND PLACE. COMPLAINS OF PAIN WITH MOVEMENT BUT WHEN ASKED IF SHE WOULD LIKE PAIN PILL, SHE DENIES. PT DOES NOT DISPLAY S/S OF PAIN AT THIS TIME. PT UP WITH ASSIST OF 2 WITH WALKER AND GAIT BELT. HAMILTON PATENT AND DRAINING. PRN MOM GIVEN THIS AM, NO BM. PT UP IN CHAIR WITH ALARM. CALL LIGHT WITHIN REACH. WILL CONTINUE TO MONITOR.
--- NOTE | 2017-02-24 18:30 | NUR ---
MIDLINE PATIENT WAS FOUND PULLING THE MIDLINE OUT OF HER RIGHT UPPER ARM. THIS NURSE ASSESSED THE SITUATION AND FOUND THE CATHETER TUBING HALF WAY OUT OF THE ARM. MIDLINE WAS DISCONTINUED, AND THE STAFF IS TO NOTIFY DR. HOOVER OF WHETHER A NEW LINE NEEDS TO BE PLACED.
[2017-02-24] MEDS ORDERED: FUROSEMIDE 20 MG TABLET PO ONE (19:15)
[2017-02-25 00:03] VITALS: BP 156/70; PULSE 83; RESP 20; TEMP 98.4; O2SAT 93
[2017-02-25 04:14] VITALS: BP 145/71; PULSE 68; RESP 20; TEMP 98.6; O2SAT 94
[2017-02-25 04:15] VITALS: BP 159/78; PULSE 80; RESP 20; TEMP 98.3; O2SAT 96
[2017-02-25] MEDS: CARBIDOPA/LEVODOPA 25 MG/100 MG TABLET PO SCH ×2 (06:35→11:17)
[2017-02-25 07:30] VITALS: BP 164/73; PULSE 82; RESP 18; TEMP 97.2; O2SAT 97
[2017-02-25 08:00] VITALS: PULSE 82; RESP 18
[2017-02-25] MEDS: AMLODIPINE 2.5 MG TABLET PO SCH (08:39)
[2017-02-25] MEDS: SENNA + DOCUSATE TAB PO SCH (08:39)
[2017-02-25] MEDS: AMANTADINE PO SCH (08:39)
[2017-02-25] MEDS: FOLBIC TABLET PO SCH (08:39)
[2017-02-25] MEDS: POTASSIUM CHLORIDE 10 MEQ TABLET PO SCH ×2 (08:40→12:27)
[2017-02-25] MEDS: ENOXAPARIN 40 MG/0.4 ML INJECTION SQ SCH (08:41)
--- NOTE | 2017-02-25 09:00 | NUR ---
DISIMPACTION AFTER GIVING PRN SUPPOSITORY, PT ONLY ABLE TO PASS A SMALL AMOUNT OF STOOL. NOTIFIED TORI SOTOMAYOR APRN OF PT NEEDING MANUAL DISIMPACTION. VERBAL ORDERS TO MANUALLY DISIMPACT. MODERATE AMOUNT OF HARD STOOL DISIMPACTED. PT RESTING IN BED WITH ALARM. CALL LIGHT WITHIN REACH. WILL CONTINUE TO MONITOR.
--- NOTE | 2017-02-25 10:43 | NUR ---
KARLA ACOSTA SPOKE WITH SHANA AT [facility] TO LET HER KNOW THAT DC IS PLANNED FOR TODAY. KARLA LEFT FOR YOCASTA OBANDO TO LET HER KNOW THIS INFORMATION.
[2017-02-25 11:31] VITALS: BP 154/68; PULSE 79; RESP 14; TEMP 97.4; O2SAT 97
[2017-02-25] MEDS ORDERED: POTASSIUM CHLORIDE 10 MEQ TABLET PO ONE (11:45)
--- NOTE | 2017-02-25 11:58 | PNPDOC ---
Subjective Date DATE: 02/25/17 TIME: 11:46 Subjective F/U: Right hip fracture. Doing okay this morning. Pain controlled. Tolerating therapy. Bowel slow- nursing had to disimpact pt. No nausea or ab pain. Breathing well without SOA or congestion. No chest pain. No f/c. Objective Vital Signs Vital signs Vital Signs Date Time Temp Pulse Resp B/P Pulse Ox O2 Delivery O2 Flow Rate FiO2 02/25/17 11:31 97.4 79 14 154/68 97 Room Air 02/23/17 19:56 1.00 Telemetry Rhythm: Sinus Rhythm Height (Feet): 4 Height (Inches): 9.00 Weight (Kilograms): 55.300 General General Appearance: Alert, Well Nourished, Well Developed, Cooperative, No Acute Distress, Looks Stated Age Eyes (Brief) Eyes: FOUND: EOMI, PERRL, NOT FOUND: scleral icterus ENMT (Brief) ENMT: FOUND: hearing intact, mucosa moist Neck (Brief) Neck: FOUND: nuchal rigidity, spasm, NOT FOUND: midline Respiratory (Brief) Respiratory: FOUND: clear all jackson, equal bilaterally, NOT FOUND: rales, wheezes Cardiovascular (Brief) Cardiac: FOUND: regular rate, regular rhythm, NOT FOUND: pedal edema Abdomen (Brief) Abdominal: FOUND: BS normo active x4, soft, NOT FOUND: distended, tender (Brief) Female: FOUND: other (bray in place ) Extremities (Brief) Extremity : Side: Bilateral Extremity: leg Extremity Finding: FOUND: other (SCD in place ), NOT FOUND: edema Musculoskeletal (Brief) Musculoskeletal: FOUND: extremities move equally, NOT FOUND: deformity, spasm Integumentary (Brief) Integumentary: FOUND: dry, warm Neurologic (Brief) Neurological: FOUND: cranial 2-12 intact, motor (In motor ) Psychiatric (Brief) Psychiatric: FOUND: alert, attentive, normal affect, oriented Laboratory Laboratory Laboratory Tests 02/24/17 06:06 Laboratory Tests 02/24/17 06:06 Assessment & Plan Problems: (1) Closed intertrochanteric fracture of right hip Status: Acute Assessment & Plan: Status post Cephalomedullary fixation of right intertrochanteric hip fracture on 02/21/17, Dr. Lopez (2) Encephalopathy Onset Date: ~ 01/2017 Status: Acute (3) Hypernatremia Status: Acute Assessment & Plan: Not present on admission (4) Leukocytosis Status: Resolved Assessment & Plan: Stress reaction (5) Parkinson disease Status: Chronic Assessment & Plan: Uses a walker at baseline (6) Hypertension Status: Chronic (7) Osteopenia Status: Chronic Qualifiers: Osteopenia location: unspecified Qualified Codes: M85.80 - Other specified disorders of bone density and structure, unspecified site (8) Hypokalemia Status: Acute Assessment & Plan: Not POA (9) Stage III chronic kidney disease Status: Chronic (10) Constipation Status: Acute Qualifiers: Constipation type: slow transit constipation Qualified Codes: K59.01 - Slow transit constipation Assessment 86 y/o woman status post ORIF right hip fracture; Parkinson's with cognitive impairment; delirium Plan/Intensity of Service Will d/c to Skilled care. Continue PT/OT/Speech to maximize functional status. Initiate Calcium with Vit D and oral Vit D. Can restart JOSE inhibitor - recheck BMP in 1 week to monitor sodium and creatine due to JOSE I use. Recheck CBC in 1 week due to anemia. F/U with PCP in week, Dr Lopez in [address] Kapoor in 2 months. See orders for details Case discussed with CM. Time spent with pt care and discharger greater than 35 minutes. DVT Prophylaxis: SCD'S, Lovenox Code Status Do Not Resuscitate Hospital Course Summary Disclaimer The hospital course summary below is not to be considered part of the above Progress Note. Hospital Course Summary ADMIT 02/20/17 1). Intertrochanteric fracture of right femur 2. Hypertension, well controlled. The current plan is to have patient nothing by mouth after midnight and in the meantime a letter have a full liquid diet. Also we plan to give her Dilaudid along with Zofran for emesis and pain control prior to surgery. Orthopedic surgery has been contacted. OP DAY 02/21/17 Cr and GFR both improved slightly. Hgb stable. Leukocytosis - suspect stress response. Reassess in am. HTN - resume amlodipine tomorrow am. Continue to hold Lasix, K, and benazepril until we can ensure postop BP, renal, and fluid status stabilization. Parkinson's with cognitive impairment; high risk for delirium - monitor closely. Start IVF - NS at 75 mL/hr - d/t NPO status. Advance diet as able, but will also obtain speech eval for dysphagia. 02/22/17 Postop day #1 Blood pressure is stable, though was quite elevated postoperatively. She was given a dose of clonidine, which brought systolic down from 201-184. She is maintaining saturations on room air. Currently, though, was requiring 1 L of oxygen earlier this morning. IV fluids have been discontinued. She is having some postoperative complications consistent with delirium, which was not unexpected. Orthopedic notes reviewed: We'll start Lovenox for DVT prophylaxis 30 days. Mild oliguria, suspect an element of chronicity, based on niece's account. BUN and creatinine are normal. Continue to monitor. Speech therapy evaluated her, recommend a soft diet with chopped meats and thin liquids. Anticipate PT and OT evaluation today. Will discontinue Bray catheter as soon as possible. Hemoglobin decreased to 11.6. Continue to monitor. We'll continue to hold benazepril for now until we can ensure that renal status and oliguria have stabilized. 02/23 POD #2 Progressing nicely and we'll keep a close eye on her blood pressure. Plan is to continue the present care. 02/24 POD #3 Continue IV fluids and will add that 2 doses of KCl by mouth today or tomorrow, which ought to help fix the hypokalemia. Eugenie is doing well and will probably be transferred to rehabilitation tomorrow. 02/25 POD #4 Doing okay this morning. Pain controlled. Tolerating therapy. Bowel slow- nursing had to disimpact pt. No nausea or ab pain. Breathing well without SOA or congestion. No chest pain. No f/c. Will d/c to Skilled care. Continue PT/OT/Speech to maximize functional status. Initiate Calcium with Vit D and oral Vit D. Can restart JOSE inhibitor - recheck BMP in 1 week to monitor sodium and creatine due to JOSE I use. Recheck CBC in 1 week due to anemia. F/U with PCP in week, Dr Lopez in [address] Kapoor in 2 months. See orders for details GONZALEZ ORELLANA MD Feb 25, 2017 11:50
[2017-02-25] MEDS ORDERED: MAGN400O4 PO (12:08)
[2017-02-25] MEDS ORDERED: CALC1CAP22 PO (12:08)
[2017-02-25] MEDS ORDERED: HYDR-4246 PO (12:08)
[2017-02-25] MEDS ORDERED: POTA10TA16 PO (12:08)
[2017-02-25] MEDS ORDERED: BISA10SU8 RECTALLY (12:08)
[2017-02-25] MEDS ORDERED: SENN-152 PO (12:08)
[2017-02-25] MEDS ORDERED: CHOL100092 PO (12:08)
[2017-02-25] MEDS ORDERED: ENOX40DI SQ (12:08)
--- NOTE | 2017-02-25 12:23 | PDOCECFAO ---
Admission Orders Admission Orders Admit to: Half-Way Allergies: Coded Allergies: NKDA (Verified Allergy, Unknown, 02/20/17) Admitting Diagnosis Fx Rt Hip Admitting Physician Mikey Morgan DO Attending Physician Dr Craft Code Status Do Not Resuscitate Anticipated LOS: 30 days or less Rehab Potential: Fair Rehab Prognosis: Fair Diet: No Salt Added, Soft (Soft diet, chopped meat; regular liquids. ) Wound/Incision Care: Keep wound covered and dry. May shower/bathe May use Facility Protocol /SO: Yes May Have Flu Vaccine: Yes Evaluations/Treat: Speech, PT, OT Half-Way Certification I certify that SNF services are required to be given on an Inpatient basis because of the patients need for [facility] care on a continuing basis for the condition(s) for which he/she received inpatient hospital services prior to his/her transfer to the SNF. SNF inpatient care is necessary for the following reasons Med Admininistration, Assess Anticoag Therapy, Teach Med Managment, Other ( Skilled PT/OT/SPeech to maximize functional status ) Cardiac or Respiratory Arrest In Event of Arrest: Do Not Start CPR Resident is Aware of Diagnosis: Yes ([place] AWARE) Additional Orders: F/U with Dr Craft in 1 week F/U with Dr Lopez in 03/14/17 at 9:30am F/U with Dr Kapoor in 2 months for Bone Health evaluation. BMP in 1 week - Dx: HTN, Medication use CBC in 1 week - Dx: Anemia WEIGHT BEARING TOLERATED. DIET: SOFT DIET WITH 1/4" CHOPPED MEAT Use IS QID for 10 days. GONZALEZ ORELLANA MD Feb 25, 2017 12:23
--- NOTE | 2017-02-25 12:56 | NUR ---
CM PT, NURSE AND DPOA ARE MADE AWARE THAT TRANSPORT IS PLANNED FOR 2PM. Addendum: 02/25/17 at 1256 by EFREN JOHNSON RN Amended: Links added.
--- NOTE | 2017-02-25 16:09 | NUR ---
DISCHARGE PT DISCHARGED TO [facility]. ALFONSO REMOVED CHARTED. VS STABLE. PACKET REVIEWED, PT NOT READY TO LEARN. REPORT CALLED TO RITIKA RIVAS C AT [facility]. QUESTIONS ANSWERED AND RITIKA RIVAS C VERBALIZED UNDERSTANDING. PACKET GIVEN TO [facility] TRANSPORTATION. Addendum: 02/25/17 at 1615 by JIMY MOSS RN PT DISCHARGED AT 1411
--- NOTE | 2017-02-27 21:36 | DSF ---
ADMISSION DIAGNOSIS Closed intertrochanteric fracture of right hip. DISCHARGE DIAGNOSIS Closed intertrochanteric fracture of right hip. ASSOCIATED CONDITIONS AND COMPLICATIONS 1. Leukocytosis--stress reaction, resolved. 2. Parkinson's. 3. Hypertension. 4. Hypernatremia (not present on admission)--resolved. 5. Encephalopathy--improved. 6. Stage III chronic kidney disease. 7. Hypokalemia (not present on admission). 8. Osteopenia. CONSULTS 1. Dr. Lopez--Orthopedic Surgery. 2. Dr. Kapoor--bone health evaluation. 3. PT, OT, Speech. PROCEDURES 02/21/2017: Cephalomedullary fixation of right intertrochanteric femoral fracture--Dr. Lopez. CLINICAL RESUME The patient is an 86-year-old female who [facility]. Injury occurred the morning of presentation around 10 or 11 a.m. With the fall, she had pain and discomfort. She was taken to emergency room in [place], [place], where she had evaluation. She received x-ray, lab work, and pain medication. Radiographic evaluation did reveal evidence of hip fracture. Hospitalist Service was consulted, and patient was subsequently placed in inpatient admission status at [facility] for further evaluation and treatment. For complete details of the H&P refer to that document. LABORATORY White blood count is 11.1, with hemoglobin 13.4, hematocrit 41.0, MCV 92.6, and platelets 195,000. Serum sodium is 143, potassium 4.0, chloride 104, CO2 26, BUN 21, with creatinine 1.3, GFR 39, and blood glucose 125. Transaminases are unremarkable. 25-OH vitamin D total was 30, with 25-OH vitamin D2 less than 7, and 25-OH vitamin D3 30. INR is 0.98. HOSPITAL COURSE The patient was placed in inpatient admission status at [facility] under the hospitalist service. Initially she was placed on full liquid diet, being made n.p.o. for anticipated surgical intervention the next day. Dilaudid and Zofran were made available to control pain and emesis. Dr. Lopez was consulted for orthopedic evaluation. Dr. Lopez did interview and examine the patient. He reviewed radiographic findings. He discussed risk versus benefit versus alternative therapy to above-noted surgery. Informed consent was obtained. She was taken to operating room on hospital day #1 where she underwent cephalomedullary fixation of her fracture. She tolerated the procedure well. Postoperatively she did have some hypertension requiring clonidine. Lovenox was started for DVT prophylaxis and will need to continue for 30 days postop. Speech Therapy was consulted for swallow evaluation in light of her Parkinson's--they recommended chopped meats and thin liquids. PT and OT were consulted to help increase strength and functional status. Lab was monitored. Overall her hospital course was one of good improvement. We did see a slight trend down of her hemoglobin from 13.4 on day of presentation down to 10.2. She did not require blood transfusion during the hospitalization. Potassium did start to decrease, and this was addressed both oral and IV. Potassium was slightly low at 3.2 at time of discharge. Her renal function did well, with creatinine decreasing to 0.9 by time of discharge. Respiratory status made good gains. She required oxygen briefly after surgery, but for the bulk of the hospitalization she was maintaining saturations in the 93% to 97%. Mir catheter was removed without problems. Pain and discomfort did defervesce during the hospitalization. Additionally, we did consult with Dr. Kapoor regarding her fragility fracture. Vitamin D levels were obtained with results as above. He is recommending calcium with vitamin D and wishes to follow with patient in two months. He will be sending a letter to the patient's primary provider regarding further bone density evaluation. Case Management helped make arrangements for longterm at [facility] in [place]. On day of discharge, she was eating, drinking, and breathing well. Her vitals were stable and she was afebrile. She was able to be discharged to longterm in stable condition. NARRATIVE DISCLAIMER: Above narrative is a brief summary of the patient's hospitalization. For complete details of the hospital course, refer to the medical record. DISCHARGE CONDITION Stable/good. DIET Soft diet/chopped meats with regular liquids. No-added salt. ACTIVITIES Weightbearing as tolerated--walker for assistance. MEDICATIONS 1. Calcium with vitamin D 600/400 b.i.d. 2. Vitamin D3 2000 units daily. 3. Lovenox 40 mg subcutaneous daily x26 days. 4. Senna Plus one p.o. b.i.d.--hold with loose stool. 5. Potassium 10 mEq b.i.d. with meals. 6. Dulcolax 10 mg CA b.i.d. p.r.n. constipation. 7. Strum 5/325 one q.6h. p.r.n. pain. 8. Milk of Magnesia 30 mL daily p.r.n. constipation. 9. Tylenol 500 mg q.4h. 10. Amantadine 50 mg b.i.d. 11. Norvasc 2.5 mg daily. 12. Benazepril 10 mg daily. 13. Sinemet 25/100 q.i.d./E. 14. Homocystine daily. 15. Benadryl topically p.r.n. inch. 16. Lasix 40 mg daily. 17. Hydrocortisone/aloe t.i.d. p.r.n. itch. 18. Lidocaine gel topically t.i.d. p.r.n. pain. 19. Aspercreme topically p.r.n. FOLLOWUP Patient will follow with Dr. Craft in one week for medical reevaluation. Patient will follow with Dr. Lopez on 03/14/2017 at 0930 hours. Patient will follow with Dr. Kapoor in two months for bone health evaluation. INSTRUCTIONS TO PATIENT Patient was instructed on her diagnoses and treatments provided. She received informed consent prior to surgical intervention. She was encouraged to be adherent with medications and participate well with therapy. She will call if temperature is greater than 100.4 or if she develops new or worsening leg/hip pain. I encouraged her on incentive spirometry use. Should problems or need occur, she will be in contact with the nursing staff at [facility] as well as her care providers. If symptoms become quite dire, she can present to emergency room for acute evaluation. She voiced understanding of the above. Time spent with discharge greater than 35 minutes. MTDD
== END 2017-02-25 14:11 | DRG 480 ==
LOC: SRG 17:35
PROC: 0QS606Z Reposition Right Upper Femur with Intramedullary Internal Fixation Device, Open Approach (ICD-10-PCS; principal; 2017-02-21 16:16)
DX: S72.141A Displaced intertrochanteric fracture of right femur, initial encounter for closed fracture (principal); G93.40 Encephalopathy, unspecified; E87.0 Hyperosmolality and hypernatremia; I12.9 Hypertensive chronic kidney disease with stage 1 through stage 4 chronic kidney disease, or unspecified chronic kidney disease; K59.01 Slow transit constipation; N18.3 Chronic kidney disease, stage 3 (moderate); D72.829 Elevated white blood cell count, unspecified; M85.80 Other specified disorders of bone density and structure, unspecified site; E87.6 Hypokalemia; G20 Parkinson's disease; Y92.129 Unspecified place in nursing home as the place of occurrence of the external cause; Y99.8 Other external cause status; Z66 Do not resuscitate; Z79.899 Other long term (current) drug therapy; W19.XXXA Unspecified fall, initial encounter
CPT/HCPCS: 36415; 80048; 80053; 82306; 85025; 85610; 86850; 86900; 86901; 93005